=== PATIENT | female | born 1960 ===

== ENCOUNTER 2016-10-08 08:16 | Emergency (ER) | payer OTHER ==
[2016-10-08 09:03] VITALS: RESP 16; TEMP 98.7; O2SAT 99
[2016-10-08] MEDS ORDERED: Sodium Chloride 0.9% 1,000 ML IV STA (09:25)
--- NOTE | 2016-10-08 09:30 | ED PDOC ---
HPI: Abdomen Time Seen by Provider: 10/08/16 08:25 Chief Complaint (Nursing): Abdominal Pain Chief Complaint (Provider): Palpitations History Per: Patient History/Exam Limitations: no limitations Onset/Duration Of Symptoms: Hrs Current Symptoms Are (Timing): Still Present Severity: Mild Associated Symptoms: Diarrhea. denies: Fever, Vomiting, Chest Pain Additional Complaint(s): Patient is a 56 year old female, who recently started Metoprolol 25 mg twice daily, presents to the ED complaining of palpitations since this morning. Patient also complains of diarrhea. Patient states she had abdominal pain yesterday, but since then resolved. Patient had palpitations before after taking new drugs and had a prior full cardiac workup that was negative. Denies fever, vomiting, chest pain, or shortness of breath. PMD: none Past Medical History Reviewed: Historical Data, Nursing Documentation, Vital Signs Vital Signs: Last Vital Signs Temp 98.7 F 10/08/16 08:25 Pulse 97 H 10/08/16 16:12 Resp 16 10/08/16 11:44 BP 130/82 10/08/16 11:44 Pulse Ox 99 10/08/16 16:12 - Medical History PMH: Anxiety, HTN, Hypercholesterolemia - Surgical History Surgical History: No Surg Hx - Family History Family History: States: No Known Family Hx - Social History Current smoker - smoking cessation education provided: No Alcohol: None Drugs: Denies - Immunization History Hx Tetanus Toxoid Vaccination: No Hx Influenza Vaccination: No Hx Pneumococcal Vaccination: No - Home Medications Home Medications: Ambulatory Orders Medication Instructions Recorded Escitalopram 10 mg PO DAILY 09/23/16 Metoprolol 25 mg PO DAILY 09/23/16 - Allergies Allergies/Adverse Reactions: Allergies Allergy/AdvReac Type Severity Reaction Status Date / Time shrimp Allergy Severe RASH Verified 10/08/16 08:23 Review of Systems ROS Statement: Except As Marked, All Systems Reviewed And Found Negative Constitutional: Negative for: Fever Cardiovascular: Positive for: Palpitations. Negative for: Chest Pain Respiratory: Negative for: Shortness of Breath Gastrointestinal: Positive for: Diarrhea. Negative for: Vomiting, Abdominal Pain Physical Exam - Reviewed Nursing Documentation Reviewed: Yes Vital Signs Reviewed: Yes - Physical Exam Appears: Positive for: Well, Non-toxic, No Acute Distress Head Exam: Positive for: ATRAUMATIC, NORMAL INSPECTION, NORMOCEPHALIC Skin: Positive for: Normal Color, Warm, DRY Neck: Positive for: Normal, Painless ROM Cardiovascular/Chest: Positive for: Regular Rate, Rhythm. Negative for: Gallop , Murmur Respiratory: Positive for: Normal Breath Sounds. Negative for: Accessory Muscle Use, Rhonchi, Respiratory Distress Gastrointestinal/Abdominal: Positive for: Normal Exam Back: Positive for: Normal Inspection Extremity: Positive for: Normal ROM Neurologic/Psych: Positive for: Alert, Oriented - Laboratory Results Result Diagrams: 10/08/16 09:30 10/08/16 09:30 - ECG ECG Rhythm: Positive for: Sinus Rhythm. Negative for: ST/T Changes Rate: 97 O2 Sat by Pulse Oximetry: 99 (RA) Pulse Ox Interpretation: Normal Medical Decision Making Medical Decision Making: Time: 8:40 Impression; 56 y/o c/o palpitations and diarrhea Plan: EKG CMP Troponin CBC IVF 11:30 patient made aware of slightly high blood sugar and potassium levels. low K likely from diarrhea. explained to pt and pts daughter at bedside. patient refered to outpatient follow up. Patient feels better. Discussed results and plan with patient who expresses understanding. Counseling was provided regarding the diagnosis and prognosis. All questions answered and there is agreement with the plan to discharge home with instructions. Patient stable for discharge. Return if symptoms persist or worsen. Scribe Attestation: Documented by Melissa Quick acting as a scribe for Donovan Hamlin MD. Scribe Attestation: All medical record entries made by the Scribe were at my direction and personally dictated by me. I have reviewed the chart and agree that the record accurately reflects my personal performance of the history, physical exam, medical decision making, and the department course for this patient. I have also personally directed, reviewed, and agree with the discharge instructions and disposition. HISTORY: Palpitations. COMPARISON: None available. TECHNIQUE: Chest PA and lateral FINDINGS: External cardiac monitoring leads. LUNGS: No focal consolidation. Please note that chest x-ray has limited sensitivity for the detection of pulmonary masses. PLEURA: No significant pleural effusion identified. No definite pneumothorax . CARDIOVASCULAR: The cardiomediastinal silhouette appears within normal limits of size. OSSEOUS STRUCTURES: No acute osseous abnormality identified. VISUALIZED UPPER ABDOMEN: Unremarkable. OTHER FINDINGS: None. IMPRESSION: No focal consolidation, significant pleural effusion, or definite pneumothorax identified. Disposition - Clinical Impression Clinical Impression: Diarrhea, Palpitations - Patient ED Disposition Is Patient to be Admitted: No Counseled Patient/Family Regarding: Studies Performed, Diagnosis - Disposition Disposition: Routine/Home Disposition Time: 10:30 Condition: IMPROVED Additional Instructions: follow up with your primary doctor in 1-2 days. return to the ED with any worsening or concerning symptoms. Instructions: Palpitations (ED), Acute Diarrhea (ED)
[2016-10-08 09:38] LABS: BASO % 0.5 % (0.0-2.0); EOS # 0.1 K/uL (0.0-0.7); HEMATOCRIT 40.3 % (34.0-47.0); LYMPH # 1.6 K/uL (1.0-4.3); LYMPH % 22.8 % (20.0-40.0); MEAN CELL VOLUME 88.8 fl (81.0-99.0); MEAN CORPUSCULAR HEMOGLOBIN 30.2 pg (27.0-31.0); MEAN PLATELET VOLUME 10.1 fl (7.2-11.7); MONO # 0.4 K/uL (0.0-0.8); MONO % 5.5 % (0.0-10.0); NEUT # 4.9 K/uL (1.8-7.0); NEUT % 70.2 % (50.0-75.0); NRBC % 0.1 % (0.0-0.0); RED CELL DISTRIBUTION WIDTH 14.2 % (11.5-14.5)
[2016-10-08 09:54] LABS: ALB/GLOB RATIO 1.1 (1.0-2.1); ALKALINE PHOSPHATASE 83 U/L (38-126); ALT/SGPT 31 U/L (9-52); AST/SGOT 20 U/L (14-36); BILIRUBIN,TOTAL 0.4 mg/dl (0.2-1.3); BLOOD UREA NITROGEN 11 mg/dl (7-17); CALCIUM 9.3 mg/dL (8.4-10.2); CARBON DIOXIDE 22 mmol/L (22-30); CHLORIDE 106 mmol/L (98-107); GFR AFRICAN-AMERICAN > 60; GLUCOSE,RANDOM 132 mg/dL (65-105); POTASSIUM 3.4 MMOL/L (3.6-5.0); SODIUM 145 mmol/l (132-148); TOTAL PROTEIN 8.1 G/DL (6.3-8.2)
--- NOTE | 2016-10-08 11:04 | RAD ---
HISTORY: Palpitations. COMPARISON: None available. TECHNIQUE: Chest PA and lateral FINDINGS: External cardiac monitoring leads. LUNGS: No focal consolidation. Please note that chest x-ray has limited sensitivity for the detection of pulmonary masses. PLEURA: No significant pleural effusion identified. No definite pneumothorax . CARDIOVASCULAR: The cardiomediastinal silhouette appears within normal limits of size. OSSEOUS STRUCTURES: No acute osseous abnormality identified. VISUALIZED UPPER ABDOMEN: Unremarkable. OTHER FINDINGS: None. IMPRESSION: No focal consolidation, significant pleural effusion, or definite pneumothorax identified.
[2016-10-08] MEDS ORDERED: Potassium Chloride 20 mEq ER Tab PO ONE (11:32)
[2016-10-08 11:45] VITALS: BP 130/82
[2016-10-08 12:32] VITALS: PULSE 97
--- NOTE | 2016-10-08 14:56 | CARD ---
APPROVED REPORT EKG Measurement Heart [id number] <Conclusion> Normal sinus rhythm Normal ECG
== END 2016-10-08 12:07 | disposition home or self-care (01) ==
LOC: H.ER 08:16
DX: R19.7 Diarrhea, unspecified (principal); R00.2 Palpitations; I10 Essential (primary) hypertension

== ENCOUNTER 2016-10-19 19:45 | Emergency (ER) | payer OTHER ==
[2016-10-19 19:52] VITALS: RESP 16; TEMP 98.5; O2SAT 98
[2016-10-19 20:39] LABS: BASO % 0.7 % (0.0-2.0); EOS # 0.3 K/uL (0.0-0.7); EOS % 4.7 % (0.0-4.0); HEMATOCRIT 38.1 % (34.0-47.0); LYMPH # 1.9 K/uL (1.0-4.3); LYMPH % 34.8 % (20.0-40.0); MEAN CELL VOLUME 88.9 fl (81.0-99.0); MEAN CORPUSCULAR HEMOGLOBIN 29.7 pg (27.0-31.0); MEAN CORPUSCULAR HGB CONC 33.4 g/dL (33.0-37.0); MEAN PLATELET VOLUME 10.8 fl (7.2-11.7); MONO # 0.5 K/uL (0.0-0.8); MONO % 9.7 % (0.0-10.0); NEUT # 2.7 K/uL (1.8-7.0); NEUT % 50.1 % (50.0-75.0); NRBC % 0.1 % (0.0-0.0); RED CELL DISTRIBUTION WIDTH 14.5 % (11.5-14.5); WHITE BLOOD COUNT 5.5 K/uL (4.8-10.8)
[2016-10-19 20:53] LABS: ALB/GLOB RATIO 1.1 (1.0-2.1); ALKALINE PHOSPHATASE 94 U/L (38-126); ALT/SGPT 55 U/L (9-52); AST/SGOT 37 U/L (14-36); BILIRUBIN,TOTAL 0.5 mg/dl (0.2-1.3); BLOOD UREA NITROGEN 13 mg/dl (7-17); CALCIUM 9.5 mg/dL (8.4-10.2); CARBON DIOXIDE 23 mmol/L (22-30); CHLORIDE 107 mmol/L (98-107); GFR AFRICAN-AMERICAN > 60; GLUCOSE,RANDOM 106 mg/dL (65-105); POTASSIUM 3.5 MMOL/L (3.6-5.0); SODIUM 141 mmol/l (132-148); TOTAL PROTEIN 7.7 G/DL (6.3-8.2)
--- NOTE | 2016-10-19 20:53 | ED PDOC ---
HPI: CCC, URI, Sore Throat Time Seen by Provider: 10/19/16 20:00 Chief Complaint (Nursing): Cough, Cold, Congestion Chief Complaint (Provider): Cough History Per: Patient History/Exam Limitations: no limitations Have you had recent travel within the past 21 days to any of the following countries: [place], [place], [place] or [place]?: No Onset/Duration Of Symptoms: Days (4 days ago) Current Symptoms Are (Timing): Still Present Location Of Pain: Other (left-sided chest pain when coughing, radiating to her back) Associated Symptoms: Cough, Sputum (yellow, rarely blood-tinged). denies: Fever , Chills, Sore Throat, Sinus Drainage (rhinorrhea), Other (leg swelling) Severity: Moderate Additional Complaint(s): Radha Blake is a 56 year old female, with a past medical history of hypertension, who presents to the emergency department for the evaluation of a productive cough that produces yellow, rarely blood-tinged sputum, that the patient has been experiencing for the past 4 days. Patient reports taking Nyquil and Zyrtec; however, they provided no relief, prompting her visit to the ED. Associated left-sided chest pain that radiates to her back is present when she coughs. Denies a fever, chills, leg swelling, rhinorrhea, or a sore throat. PMD: [facility] Past Medical History Reviewed: Historical Data, Nursing Documentation, Vital Signs Vital Signs: Last Vital Signs Temp 98.5 F 10/19/16 19:51 Pulse 81 10/19/16 23:02 Resp 16 10/19/16 19:51 BP 134/74 10/19/16 21:00 Pulse Ox 98 10/19/16 21:12 - Medical History PMH: Anxiety, HTN, Hypercholesterolemia - Surgical History Surgical History: - Family History Family History: States: Hypertension - Immunization History Hx Tetanus Toxoid Vaccination: No Hx Influenza Vaccination: No Hx Pneumococcal Vaccination: No - Home Medications Home Medications: Ambulatory Orders Medication Instructions Recorded Escitalopram 10 mg PO DAILY 09/23/16 Metoprolol 25 mg PO DAILY 09/23/16 Azithromycin 1 tab PO DAILY #6 tab 10/19/16 Naproxen [Naprosyn] 1 tab PO BID PRN #30 tab 10/19/16 Promethazine HCl/Codeine 10 ml PO Q8 #120 ml 10/19/16 [Prometh-Codein 6.25-10 mg/5 ml] - Allergies Allergies/Adverse Reactions: Allergies Allergy/AdvReac Type Severity Reaction Status Date / Time shrimp Allergy Severe RASH Verified 10/08/16 08:23 octopus Allergy RASH Verified 10/19/16 19:49 Review of Systems ROS Statement: Except As Marked, All Systems Reviewed And Found Negative Constitutional: Negative for: Fever, Chills ENT: Positive for: Throat Pain. Negative for: Nose Discharge (rhinorrhea) Cardiovascular: Positive for: Chest Pain (when coughing). Negative for: Edema ( leg swelling) Respiratory: Positive for: Cough, Sputum (yellow, rarely blood-tinged) Musculoskeletal: Positive for: Back Pain (radiating from her chest when coughing ) Physical Exam - Reviewed Nursing Documentation Reviewed: Yes Vital Signs Reviewed: Yes - Physical Exam Appears: Positive for: Well (tired), Non-toxic, No Acute Distress Head Exam: Positive for: ATRAUMATIC, NORMAL INSPECTION, NORMOCEPHALIC Skin: Positive for: Normal Color, Warm, Dry Eye Exam: Positive for: EOMI, Normal appearance, PERRL ENT: Positive for: Normal ENT Inspection. Negative for: Pharyngeal Erythema, Tonsillar Exudate Neck: Positive for: Normal, Painless ROM, Supple Cardiovascular/Chest: Positive for: Regular Rate, Rhythm. Negative for: Murmur Respiratory: Positive for: Rales (left lower lung). Negative for: Normal Breath Sounds, Rhonchi, Wheezing, Respiratory Distress Gastrointestinal/Abdominal: Positive for: Normal Exam, Soft. Negative for: Tenderness Back: Positive for: Normal Inspection. Negative for: Decreased ROM Extremity: Positive for: Normal ROM. Negative for: Deformity Lymphatic: Negative for: Adenopathy Neurologic/Psych: Positive for: Alert, Oriented. Negative for: Motor/Sensory Deficits - Laboratory Results Result Diagrams: 10/19/16 20:35 10/19/16 20:35 - ECG ECG Rhythm: Positive for: Normal QRS, Normal ST Segment, Sinus Rhythm Rate: 94 O2 Sat by Pulse Oximetry: 98 (RA) Pulse Ox Interpretation: Normal Medical Decision Making Medical Decision Makin:00 Initial Impression: cough Differential Diagnoses include, but are not limited to, bronchitis, pneumonia, and congestive heart failure. Initial Plan: * Chest X-Ray * EKG * CBC * CMP * BNP * Troponin I * Influenza A/B * Blood Culture * Reevaluation 20:15 EKG read at a rate of 94. Normal Sinus Rhythm, Normal QRS, Normal ST Segment. 2200 Labs unremarkable. CXR unremarkable. Scribe Attestation: Documented by Amanuel Villagomez, acting as a scribe for Denice Kothari MD. Provider Scribe Attestation: All medical record entries made by the Scribe were at my direction and personally dictated by me. I have reviewed the chart and agree that the record accurately reflects my personal performance of the history, physical exam, medical decision making, and the department course for this patient. I have also personally directed, reviewed, and agree with the discharge instructions and disposition. Disposition - Clinical Impression Clinical Impression: Bronchitis - Disposition Referrals: [facility] [Outside] - 10/21/16 Disposition: Routine/Home Disposition Time: 22:00 Condition: STABLE Prescriptions: Azithromycin 1 tab PO DAILY #6 tab Naproxen [Naprosyn] 1 tab PO BID PRN #30 tab PRN Reason: Pain Promethazine HCl/Codeine [Prometh-Codein 6.25-10 mg/5 ml] 10 ml PO Q8 #120 ml Instructions: Acute Bronchitis (ED) Print Language: MALAY
[2016-10-19 21:01] VITALS: BP 134/74
--- NOTE | 2016-10-20 10:02 | CARD ---
APPROVED REPORT EKG Measurement Heart [id number] <Conclusion> Normal sinus rhythm Normal ECG
--- NOTE | 2016-10-20 10:20 | RAD ---
HISTORY: cough chest pain COMPARISON: 10/08/2016 TECHNIQUE: Chest PA and lateral FINDINGS: LUNGS: No active pulmonary disease. PLEURA: No significant pleural effusion identified. No pneumothorax apparent. CARDIOVASCULAR: Normal. OSSEOUS STRUCTURES: No significant abnormalities. VISUALIZED UPPER ABDOMEN: Normal. OTHER FINDINGS: None. IMPRESSION: No active disease.
[2016-10-20 17:20] VITALS: PULSE 94
== END 2016-10-19 23:02 | disposition home or self-care (01) ==
LOC: H.ER 19:45
DX: J40 Bronchitis, not specified as acute or chronic (principal)

== ENCOUNTER 2017-05-07 12:46 | Inpatient (IN) | payer SELFPAY ==
[2017-05-07] MEDS ORDERED: Alum-Mag Hydrox-Simethicone Susp (30 mL) PO ONE (13:49)
[2017-05-07] MEDS ORDERED: Sodium Chloride 0.9% 1,000 ML IV STA (13:49)
[2017-05-07] MEDS ORDERED: Alum-Mag Hydrox-Simethicone Susp (30 mL) ONE (13:58)
--- NOTE | 2017-05-07 14:10 | ED PDOC ---
HPI: General Adult History Per: Patient <Todd Cope - Last Filed: 05/07/17 19:39> <Antonio Daniels III - Last Filed: 05/08/17 17:37> Time Seen by Provider: 05/07/17 13:00 Chief Complaint (Nursing): Abdominal Pain Additional Complaint(s): Pt. states this morning she developed epigastric abdominal pain shortly after eating breakfast and taking her Buspirone. Pt. reports that earlier this year she was diagnosed as having gallstones. Reports pain is usually resolved after eating. Denies N/V/D, radiation of pain, chest pain, back pain, hematemesis. ( Todd Cope) Past Medical History - Medical History PMH: Anxiety, HTN, Hypercholesterolemia - Surgical History Surgical History: - Family History Family History: States: Hypertension - Immunization History Hx Tetanus Toxoid Vaccination: No Hx Influenza Vaccination: No Hx Pneumococcal Vaccination: No <Todd Cope - Last Filed: 05/07/17 19:39> <Antonio Daniels III - Last Filed: 05/08/17 17:37> Vital Signs: Last Vital Signs Temp 98.3 F 05/08/17 16:22 Pulse 64 05/08/17 16:22 Resp 14 05/08/17 16:22 BP 121/71 05/08/17 16:22 Pulse Ox 97 05/08/17 16:22 - Home Medications Home Medications: Ambulatory Orders Medication Instructions Recorded Lactobacillus Combination No.8 1 cap PO BID 05/07/17 [Adult Probiotic] busPIRone [Buspar] 5 mg PO BID 05/07/17 - Allergies Allergies/Adverse Reactions: Allergies Allergy/AdvReac Type Severity Reaction Status Date / Time shrimp Allergy Severe RASH Verified 05/07/17 12:55 octopus Allergy RASH Verified 05/07/17 12:55 Review of Systems ROS Statement: Except As Marked, All Systems Reviewed And Found Negative Gastrointestinal: Positive for: Abdominal Pain <Todd Cope - Last Filed: 05/07/17 19:39> Physical Exam - Reviewed Nursing Documentation Reviewed: Yes Vital Signs Reviewed: Yes - Physical Exam Appears: Positive for: Well, Non-toxic, No Acute Distress Head Exam: Positive for: ATRAUMATIC, NORMAL INSPECTION, NORMOCEPHALIC Skin: Positive for: Normal Color, Warm. Negative for: Rash Eye Exam: Positive for: EOMI, Normal appearance, PERRL ENT: Positive for: Normal ENT Inspection Neck: Positive for: Normal, Painless ROM Cardiovascular/Chest: Positive for: Regular Rate, Rhythm Respiratory: Positive for: CNT, Normal Breath Sounds Gastrointestinal/Abdominal: Positive for: Normal Exam, Bowel Sounds, Soft, Other (negative Rubi's sign). Negative for: Tenderness Back: Positive for: Normal Inspection Extremity: Positive for: Normal ROM Neurologic/Psych: Positive for: Alert, Oriented <Todd Cope - Last Filed: 05/07/17 19:39> - Laboratory Results Result Diagrams: 05/07/17 14:13 05/07/17 14:13 - ECG O2 Sat by Pulse Oximetry: 100 <Todd Cope - Last Filed: 05/07/17 19:39> - Laboratory Results Result Diagrams: 05/08/17 04:30 05/08/17 04:30 <Antonio Daniels III - Last Filed: 05/08/17 17:37> - Progress ED Course And Treament: Labs ordered. Pepcid 20mg IV, zofran 4mg IV, maalox 30ml PO, IV NS bolus x 1 ordered. 1530 Case d/w Dr. Tello, rn medical surgical, and will see patient in ED. Lipase is elevated. Call placed to [facility] water pollution specialist. Abd US: precholecystic edema and fluid present; no gallstones. Zosyn IV given. Pt. reports pain has resolved. LR hydration given. 1537 Dr. Daniels discussed case with Dr. Alexander GI, who recommends MRCP. 1727 MRCP: No evidence of pancreatitis. No evidence of biliary obstruction. Diffuse thickening of the gallbladder wall with trace pericholecystic fluid and trace ascites. Findings raise suspicion of cholecystitis though they are nonspecific. Case d/w Dr. Alexander and recommends IV hydration. Case d/w Araceli, rn medical surgical, who evaluate pt. in ED. Call placed to Dr. Fabian. As per Araceli she will contact Dr. Fabian herself. (Todd Cope) Medical Decision Making <Todd Cope - Last Filed: 05/07/17 19:39> <Antonio Daniels III - Last Filed: 05/08/17 17:37> Medical Decision Making: patient seen and examined. Agree w PA findings GI and surgery water pollution specialist aware. IVF and antibiotics were initiated. (Antonio Daniels III) Disposition - Patient ED Disposition Is Patient to be Admitted: No - Disposition Disposition Time: 15:37 <Todd Cope - Last Filed: 05/07/17 19:39> - Patient ED Disposition Is Patient to be Admitted: Yes <Antonio Daniels III - Last Filed: 05/08/17 17:37> - Clinical Impression Clinical Impression: Gallstone pancreatitis - Disposition Condition: STABLE
[2017-05-07 14:29] LABS: BASO % 0.1 % (0.0-2.0); EOS % 0.3 % (0.0-4.0); LYMPH % 13.3 % (20.0-40.0); MEAN CELL VOLUME 90.3 fl (81.0-99.0); MEAN CORPUSCULAR HEMOGLOBIN 29.7 pg (27.0-31.0); MEAN CORPUSCULAR HGB CONC 32.9 g/dL (33.0-37.0); MEAN PLATELET VOLUME 11.7 fl (7.2-11.7); MONO # 0.8 K/uL (0.0-0.8); MONO % 4.9 % (0.0-10.0); NEUT # 12.5 K/uL (1.8-7.0); NEUT % 81.4 % (50.0-75.0); RED CELL DISTRIBUTION WIDTH 13.6 % (11.5-14.5); WHITE BLOOD COUNT 15.3 K/uL (4.8-10.8)
[2017-05-07 14:32] LABS: RBC URINE 1 /hpf (0-3); URINE BACTERIA RARE (<OCC); URINE BILIRUBIN NEGATIVE (NEGATIVE); URINE BLOOD NEGATIVE (NEGATIVE); URINE COLOR YELLOW (YELLOW); URINE GLUCOSE (UA) NEG (Normal); URINE KETONE NEGATIVE (NEGATIVE); URINE LEUKOCYTE ESTERASE NEG Leu/uL (Negative); URINE PROTEIN NEGATIVE (NEGATIVE); URINE UROBILINOGEN 0.2-1.0 mg/dL (0.2-1.0); WBC URINE 1 /hpf (0-5)
[2017-05-07 14:55] LABS: ALB/GLOB RATIO 1.3 (1.0-2.1); ALKALINE PHOSPHATASE 155 U/L (38-126); ALT/SGPT 167 U/L (9-52); AST/SGOT 264 U/L (14-36); BILIRUBIN,TOTAL 0.8 mg/dl (0.2-1.3); BLOOD UREA NITROGEN 16 mg/dl (7-17); CALCIUM 9.2 mg/dL (8.4-10.2); CARBON DIOXIDE 24 mmol/L (22-30); CHLORIDE 104 mmol/L (98-107); GFR AFRICAN-AMERICAN > 60; GLUCOSE,RANDOM 111 mg/dL (65-105); POTASSIUM 3.3 MMOL/L (3.6-5.0); SODIUM 144 mmol/l (132-148); TOTAL PROTEIN 8.6 G/DL (6.3-8.2)
[2017-05-07] MEDS ORDERED: Piperacillin/Tazobact 3.375 GM in Sodium Chloride 0.9% 100 ML IVPB STA (15:26)
[2017-05-07 15:28] LABS: LIPASE 36249 U/L (23-300)
--- NOTE | 2017-05-07 15:33 | US ---
HISTORY: epigastric abdominal pain COMPARISON: 02/11/2017 TECHNIQUE: Sonographic evaluation of the abdomen. FINDINGS: LIVER: Measures 15.3 cm. Normal echogenicity of the liver parenchyma. No mass. No intrahepatic bile duct dilatation. GALLBLADDER: There is interval change in the gallbladder. Gallstones present. Gallbladder wall thickening up to 6.2 mm and pericholecystic pericholecystic fluid. Findings concerning for interval acute cholecystitis. No sonographic Rubi sign reported COMMON BILE DUCT: Measures 5.2 mm. No stones. No dilatation. PANCREAS: Unremarkable as visualized. No mass. No ductal dilatation. RIGHT KIDNEY: Measures 7.7 x 4.0 by 5.5cm. Normal echogenicity. No calculus, solid mass or hydronephrosis. . A prior cyst 1.8 x 0.9 cm is present a prior cyst was previously reported. There is echogenic material bordering it trace calcification within it are bordering it is possible. Overall size similar LEFT KIDNEY: Measures 10.6 x 6.2 x 5.7cm. Normal echogenicity. No calculus, mass, or hydronephrosis. SPLEEN: Normal in size and contour. No mass. AORTA: No aneurysmal dilatation. IVC: Unremarkable. OTHER FINDINGS: None. IMPRESSION: Interval change in the appearance of the gallbladder. Gallstones are not present. Gallbladder wall thickening and edema the pericholecystic fluid present. Although no positive sonographic Rubi sign is reported. The sonographic findings are concerning for interval acute/ subacute cholecystitis. Findings were called in to the ER on 05/07/2017 at 3:30 p.m. and directly given to Dr Cabello
[2017-05-07] MEDS ORDERED: Lactated Ringer's 1,000 ML IV SCH ×4 (15:45→18:30)
[2017-05-07] MEDS ORDERED: Gadodiamide 287 MG/ML VIAL (15ML) IV ONE (15:53)
[2017-05-07] MEDS ORDERED: Sodium Chloride 0.9% 50 ML IV ONE (15:53)
[2017-05-07 16:16] LABS: VENOUS BLOOD GAS BASE EXCESS -0.6 mmol/L (0.0-2.0); VENOUS BLOOD GAS PCO2 43 mmHg (40-60); VENOUS BLOOD PH 7.37 (7.32-7.43)
--- NOTE | 2017-05-07 16:24 | CP.PCM.HP ---
History of Present Illness - History of Present Illness History of Present Illness: History and Physical Family Medicine Dr. Smith 56 y.o female with PMH of acid reflux, HTN, hypercholesterolemia, Generalized Anxiety Disorder, knee OA, and gallstones seen on 02/11/17 seen in the ED for epigastric abdominal pain. She reports the pain happened this morning after eating breakfast. She rates her pain 10/10 and describes the pain as a pressure , throbbing pain. She reports the pain stays localized to the epigastric region. Denies radiation. ROS: denies nausea/vomitting/shortness of breath/chest pain/chills/fever/ dysuria PMH: acid reflux, HTN, hypercholesterolemia, Generalized Anxiety Disorder, knee OA, gallstones ALL: shrimp, octopus- rash MEDS: Buspirone FH: mother- COPD, father- HTN, CAD; denies history of cancer SH: denies smoking, drinks socially, denies elicited drug use PSH: 1- LMP: 4 years ago PMD [facility] Dr. Crain ED Course: EKG: normal sinus rhythm, normal EKG vitals: 96.7F, UT 60, BP 130/51, RR 16, O2 Stat 100 WBC: 15.3 AST: 264, ALT: 167, Alkaline Phosphatase: 155 Lipase: 84369 Given stat dose of Zosyn Given Famotidine, Simethicone Given LR 1000 mls @ 1000 mls/hr IV .q1h say x 2 bolus Abdominal ultrasound ordered MRCP pending Abdominal ultrasound results: LIVER: Measures 15.3 cm. Normal echogenicity of the liver parenchyma. No mass. No intrahepatic bile duct dilatation. GALLBLADDER: There is interval change in the gallbladder. Gallstones present. Gallbladder wall thickening up to 6.2 mm and pericholecystic pericholecystic fluid. Findings concerning for interval acute cholecystitis. No sonographic Rubi sign reported COMMON BILE DUCT: Measures 5.2 mm. No stones. No dilatation. PANCREAS: Unremarkable as visualized. No mass. No ductal dilatation. RIGHT KIDNEY: Measures 7.7 x 4.0 by 5.5cm. Normal echogenicity. No calculus, solid mass or hydronephrosis. . A prior cyst 1.8 x 0.9 cm is present a prior cyst was previously reported. There is echogenic material bordering it trace calcification within it are bordering it is possible. Overall size similar LEFT KIDNEY: Measures 10.6 x 6.2 x 5.7cm. Normal echogenicity. No calculus, mass , or hydronephrosis. SPLEEN: Normal in size and contour. No mass. AORTA: No aneurysmal dilatation. IVC: Unremarkable. OTHER FINDINGS: None. IMPRESSION: Interval change in the appearance of the gallbladder. Gallstones are not present. Gallbladder wall thickening and edema the pericholecystic fluid present. Although no positive sonographic Rubi sign is reported. The sonographic findings are concerning for interval acute/ subacute cholecystitis. Present on Admission - Present on Admission Any Indicators Present on Admission: No History of DVT/PE: No History of Uncontrolled Diabetes: No Urinary Catheter: No Decubitus Ulcer Present: No Review of Systems - Constitutional Constitutional: absent: Fatigue, Lethargy - EENT Eyes: absent: Change in Vision, Other Visual Disturbances - Cardiovascular Cardiovascular: absent: Chest Pain, Dyspnea on Exertion - Respiratory Respiratory: absent: Cough, Dyspnea - Gastrointestinal Gastrointestinal: As Per HPI, Abdominal Pain. absent: Diarrhea, Hematemesis, Hematochezia, Melena, Vomiting - Genitourinary Genitourinary: absent: Dysuria, Hematuria, Urinary Frequency - Neurological Neurological: absent: Abnormal Speech, Behavioral Changes, Dizziness Past Patient History - Past Social History Smoking Status: Never Smoked - CARDIAC Hx Hypercholesterolemia: Yes Hx Hypertension: Yes - PSYCHIATRIC Hx Anxiety: Yes - SURGICAL HISTORY Hx Surgeries: Yes Hx Section: Yes - ANESTHESIA Hx Anesthesia: Yes Meds Allergies/Adverse Reactions: Allergies Allergy/AdvReac Type Severity Reaction Status Date / Time shrimp Allergy Severe RASH Verified 05/07/17 12:55 octopus Allergy RASH Verified 05/07/17 12:55 Physical Exam - Constitutional Appears: Well, Non-toxic, No Acute Distress - Head Exam Head Exam: ATRAUMATIC - Eye Exam Eye Exam: Normal appearance. absent: Scleral icterus - ENT Exam ENT Exam: Mucous Membranes Dry Additional comments: Mild - Neck Exam Neck exam: Positive for: Full Rom - Respiratory Exam Respiratory Exam: Clear to Auscultation Bilateral, NORMAL BREATHING PATTERN. absent: Decreased Breath Sounds, Rales, Rhonchi, Wheezes, Respiratory Distress, Stridor - Cardiovascular Exam Cardiovascular Exam: REGULAR RHYTHM, RRR, +S1, +S2 - GI/Abdominal Exam GI & Abdominal Exam: Normal Bowel Sounds, Soft, Tenderness. absent: Pulsatile Mass, Rebound Additional comments: Mild tenderness upon palpation to the epigastric region - Extremities Exam Extremities exam: Positive for: normal capillary refill, normal inspection, pedal pulses present. Negative for: calf tenderness, pedal edema - Neurological Exam Neurological exam: Alert, Oriented x3 - Psychiatric Exam Psychiatric exam: Anxious, Normal Affect Results - Vital Signs Recent Vital Signs: Last Vital Signs Temp 96.7 F L 05/07/17 12:55 Pulse 60 05/07/17 12:55 Resp 16 05/07/17 12:55 BP 130/51 L 05/07/17 12:55 Pulse Ox 100 05/07/17 15:38 - Labs Result Diagrams: 05/07/17 14:13 05/07/17 14:13 Labs: Laboratory Results - last 24 hr 05/07/17 05/07/17 05/07/17 14:13 14:13 14:13 WBC 15.3 H D RBC 4.32 Hgb 12.8 Hct 39.0 MCV 90.3 MCH 29.7 MCHC 32.9 L RDW 13.6 Plt Count 191 MPV 11.7 Neut % (Auto) 81.4 H Lymph % (Auto) 13.[address] [place] % (Auto) 4.9 Eos % (Auto) 0.3 Baso % (Auto) 0.1 Neut # 12.5 H Lymph # 2.0 [place] # 0.8 Eos # 0.0 Baso # 0.0 pO2 VBG pH VBG pCO2 VBG HCO3 VBG Total CO2 VBG O2 Sat (Calc) VBG Base Excess VBG Potassium Glucose Lactate FiO2 Sodium 144 Potassium 3.3 L Chloride 104 Carbon Dioxide 24 Anion Gap 19 BUN 16 Creatinine 0.5 L Est GFR ( Amer) > 60 Est GFR (Non-Af Amer) > 60 Random Glucose 111 H Calcium 9.2 Total Bilirubin 0.8 AST 264 H ALT 167 H D Alkaline Phosphatase 155 H Total Protein 8.6 H Albumin 4.8 Globulin 3.8 Albumin/Globulin Ratio 1.3 Lipase 89457 H Venous Blood Potassium Urine Color Yellow Urine Clarity Cloudy Urine pH 6.0 Ur Specific [place] 1.008 Urine Protein Negative Urine Glucose (UA) Neg Urine Ketones Negative Urine Blood Negative Urine Nitrate Negative Urine Bilirubin Negative Urine Urobilinogen 0.2-1.0 Ur Leukocyte Esterase Neg Urine RBC (Auto) 1 Urine Microscopic WBC 1 Ur Squamous Epith Cells < 1 Urine Bacteria Rare 05/07/17 16:10 WBC RBC Hgb Hct MCV MCH MCHC RDW Plt Count MPV Neut % (Auto) Lymph % (Auto) [place] % (Auto) Eos % (Auto) Baso % (Auto) Neut # Lymph # [place] # Eos # Baso # pO2 24 L VBG pH 7.37 VBG pCO2 43 VBG HCO3 22.9 VBG Total CO2 26.2 VBG O2 Sat (Calc) 45.6 VBG Base Excess -0.6 L VBG Potassium 3.3 L Glucose 128 H Lactate 1.1 FiO2 21.0 Sodium 139.0 Potassium Chloride 107.0 Carbon Dioxide Anion Gap BUN Creatinine Est GFR ( Amer) Est GFR (Non-Af Amer) Random Glucose Calcium Total Bilirubin AST ALT Alkaline Phosphatase Total Protein Albumin Globulin Albumin/Globulin Ratio Lipase Venous Blood Potassium 3.3 L Urine Color Urine Clarity Urine pH Ur Specific [place] Urine Protein Urine Glucose (UA) Urine Ketones Urine Blood Urine Nitrate Urine Bilirubin Urine Urobilinogen Ur Leukocyte Esterase Urine RBC (Auto) Urine Microscopic WBC Ur Squamous Epith Cells Urine Bacteria Assessment & Plan - Assessment and Plan (Free Text) Assessment: 56 y.o female with PMH of acid reflux, HTN, hypercholesterolemia, supraventricular tachycardia, Generalized Anxiety Disorder, knee OA, gallstones admitted for Acute pancreatitis of unclear etiology most likely secondary to gallstones Plan: 1) Acute pancreatitis of unclear etiology most likely gallstones - abdominal U/S (02/11/17) showed cholelitihiasis without cholecystitis - WBC: 15.3 - AST: 264, ALT: 167, Alkaline Phosphatase: 155 - Elevated Lipase: 82640 - BISAP score: 0 - NPO Diet - c/w LR 1000 mls @ 200 mls/hr IV .q5h say - Abdominal ultrasound Results (05/07/17): Impression: "Interval change in the appearance of the gallbladder. Gallstones are not present. Gallbladder wall thickening and edema the pericholecystic fluid present. Although no positive sonographic Rubi sign is reported. The sonographic findings are concerning for interval acute/ subacute cholecystitis" - f/u MRCP Results - GI consulted- recommendations appreciated - f/u alcohol serum - Dilaudid .5mg q4 IV PRN for moderate-severe pain - Zofran PRN 2) Elevated WBC -Zosyn stat given in ED -Repeat CBC in AM -Pending blood culture results 3) HTN -diet controlled 4) Hypercholesterolemia -f/u lipid panel 5) DVT prophylaxis -SCDs 6) Diet -NPO Diet
--- NOTE | 2017-05-07 17:29 | MRI ---
PROCEDURE: Magnetic Resonance Cholangiopancreatography HISTORY: COMPARISON: None available. TECHNIQUE: Multiplanar, multisequence MR images of the abdomen were obtained, including heavily T2 weighted MRCP images of the biliary system. Rotating maximum intensity projection images of the biliary system were generated. FINDINGS: MRCP: The common bile duct is of a normal caliber. No evidence of choledocholithiasis. No intrahepatic biliary ductal dilatation. LIVER: Normal size, contour and signal intensity. No mass. No biliary ductal dilatation. GALLBLADDER: The gallbladder wall is diffusely thickened. There is trace pericholecystic fluid as well as a small amount ascites about the lateral aspect of the liver and in Morison's pouch. The findings are suspicious for cholecystitis though they are nonspecific. SPLEEN: Unremarkable. PANCREAS: No mass, pancreatic ductal dilatation or peripancreatic fluid collection. ADRENALS: Unremarkable. KIDNEYS: Right lower pole renal cortical cyst, 1.6 cm diameter. No hydronephrosis. AORTA: No aneurysm. ASCITES: Trace OTHER FINDINGS: None. IMPRESSION: No evidence of pancreatitis. No evidence of biliary obstruction. Diffuse thickening of the gallbladder wall with trace pericholecystic fluid and trace ascites. Findings raise suspicion of cholecystitis though they are nonspecific. Correlated with abdominal ultrasound examination of the same date, gallstones and mural thickening and pericholecystic fluid were seen. . .
[2017-05-07 18:50] LABS: ALCOHOL SERUM < 10 mg/dl (0-10); CHOLESTEROL 202 mg/dL (0-199)
[2017-05-07] MEDS: Lactated Ringer's 1,000 ML IV SCH ×2 (19:55→23:00)
--- NOTE | 2017-05-07 23:02 | CP.PCM.CON ---
History of Present Illness - History of Present Illness History of Present Illness: GENERAL SURGERY CONSULT NOTE FOR DR. VENEGAS 56yoF with PMHx of cholelithiasis, anxiety presents to the ED with epigastric abdominal pain. The pain began this morning after breakfast. Patient describes the pain as "pressure". She tried drinking tea which didn't help. She had some nausea this morning and vomited a small amount. She denies diarrhea, last BM was this morning. Patient states the pain has been on and off for about 3 months. She notices the pain more when she takes her Buspirone pill on an empty stomach. The pain is not worse after eating. Pt states she eats very healthy after she was diagnosed with HTN and was able to control her BP with diet only. She does not eat greasy or fatty foods. She had an US on 02/11/17 which showed cholelithiasis without signs of cholecystitis PMHx: acid reflux, HTN (formerly on meds but changed diet and now doesn't need BP meds anymore), prediabetic, Generalized Anxiety Disorder, gallstones PSHx: C-sectionx1 ALL: shrimp, octopus- rash MEDS: Buspirone Social hx: denies smoking, drank socially - hasn't had etoh in 2 years, denies elicit drug use LMP: 4 years ago Review of Systems - Review of Systems All systems: reviewed and no additional remarkable complaints except (as per hpi ) Past Patient History - Past Social History Smoking Status: Never Smoked - CARDIAC Hx Cardiac Disorders: Yes - PSYCHIATRIC Hx Anxiety: Yes - SURGICAL HISTORY Hx Surgeries: Yes Hx Section: Yes - ANESTHESIA Hx Anesthesia: Yes Meds Allergies/Adverse Reactions: Allergies Allergy/AdvReac Type Severity Reaction Status Date / Time shrimp Allergy Severe RASH Verified 05/07/17 12:55 octopus Allergy RASH Verified 05/07/17 12:55 - Medications Medications: Current Medications Hydromorphone HCl (Dilaudid) 1 mg IVP Q6 PRN PRN Reason: Pain, severe (8-10) Hydromorphone HCl (Dilaudid) 0.5 mg IVP Q4 PRN PRN Reason: Pain, moderate (4-7) Stop: 05/09/17 18:50 Lactated Ringer's (Lactated Ringer's) 1,000 mls @ 1,000 mls/hr IV .Q1H [facility] Last Admin: 05/07/17 18:32 Dose: 1,000 mls/hr Lactated Ringer's (Lactated Ringer's) 1,000 mls @ 250 mls/hr IV .Q4H [facility] Last Admin: 05/07/17 19:55 Dose: 250 mls/hr Ondansetron HCl (Zofran Inj) 4 mg IVP Q4 PRN PRN Reason: Nausea/Vomiting Physical Exam - Constitutional Appears: Non-toxic, No Acute Distress - Head Exam Head Exam: ATRAUMATIC, NORMAL INSPECTION - Eye Exam Eye Exam: EOMI, Normal appearance - Respiratory Exam Respiratory Exam: NORMAL BREATHING PATTERN. absent: Respiratory Distress - Cardiovascular Exam Cardiovascular Exam: +S1, +S2 - GI/Abdominal Exam GI & Abdominal Exam: Soft, Tenderness (mild tender epigastric). absent: Distended, Firm, Guarding, Rebound, Rigid Additional comments: well healed C section scar - Neurological Exam Neurological exam: Alert, CN II-XII Intact, Oriented x3 - Psychiatric Exam Psychiatric exam: Normal Affect, Normal Mood - Skin Skin Exam: Dry, Normal Color, Warm Results - Vital Signs Recent Vital Signs: Last Vital Signs Temp 98.1 F 05/07/17 22:16 Pulse 78 05/07/17 22:16 Resp 20 05/07/17 22:16 BP 129/70 05/07/17 22:16 Pulse Ox 100 05/07/17 22:16 - Labs Result Diagrams: 05/07/17 14:13 05/07/17 14:13 Labs: Laboratory Results - last 24 hr 05/07/17 05/07/17 05/07/17 14:13 14:13 14:13 WBC 15.3 H D RBC 4.32 Hgb 12.8 Hct 39.0 MCV 90.3 MCH 29.7 MCHC 32.9 L RDW 13.6 Plt Count 191 MPV 11.7 Neut % (Auto) 81.4 H Lymph % (Auto) 13.3 L [place] % (Auto) 4.9 Eos % (Auto) 0.3 Baso % (Auto) 0.1 Neut # 12.5 H Lymph # 2.0 [place] # 0.8 Eos # 0.0 Baso # 0.0 pO2 VBG pH VBG pCO2 VBG HCO3 VBG Total CO2 VBG O2 Sat (Calc) VBG Base Excess VBG Potassium Glucose Lactate FiO2 Sodium 144 Potassium 3.3 L Chloride 104 Carbon Dioxide 24 Anion Gap 19 BUN 16 Creatinine 0.5 L Est GFR ( Amer) > 60 Est GFR (Non-Af Amer) > 60 Random Glucose 111 H Calcium 9.2 Total Bilirubin 0.8 AST 264 H ALT 167 H D Alkaline Phosphatase 155 H Total Protein 8.6 H Albumin 4.8 Globulin 3.8 Albumin/Globulin Ratio 1.3 Triglycerides Cholesterol LDL Cholesterol Direct HDL Cholesterol Lipase 34776 H Venous Blood Potassium Urine Color Yellow Urine Clarity Cloudy Urine pH 6.0 Ur Specific [place] 1.008 Urine Protein Negative Urine Glucose (UA) Neg Urine Ketones Negative Urine Blood Negative Urine Nitrate Negative Urine Bilirubin Negative Urine Urobilinogen 0.2-1.0 Ur Leukocyte Esterase Neg Urine RBC (Auto) 1 Urine Microscopic WBC 1 Ur Squamous Epith Cells < 1 Urine Bacteria Rare Alcohol, Quantitative 05/07/17 05/07/17 16:10 18:41 WBC RBC Hgb Hct MCV MCH MCHC RDW Plt Count MPV Neut % (Auto) Lymph % (Auto) [place] % (Auto) Eos % (Auto) Baso % (Auto) Neut # Lymph # [place] # Eos # Baso # pO2 24 L VBG pH 7.37 VBG pCO2 43 VBG HCO3 22.9 VBG Total CO2 26.2 VBG O2 Sat (Calc) 45.6 VBG Base Excess -0.6 L VBG Potassium 3.3 L Glucose 128 H Lactate 1.1 FiO2 21.0 Sodium 139.0 Potassium Chloride 107.0 Carbon Dioxide Anion Gap BUN Creatinine Est GFR ( Amer) Est GFR (Non-Af Amer) Random Glucose Calcium Total Bilirubin AST ALT Alkaline Phosphatase Total Protein Albumin Globulin Albumin/Globulin Ratio Triglycerides 99 D Cholesterol 202 H LDL Cholesterol Direct 116 HDL Cholesterol 52 Lipase Venous Blood Potassium 3.3 L Urine Color Urine Clarity Urine pH Ur Specific [place] Urine Protein Urine Glucose (UA) Urine Ketones Urine Blood Urine Nitrate Urine Bilirubin Urine Urobilinogen Ur Leukocyte Esterase Urine RBC (Auto) Urine Microscopic WBC Ur Squamous Epith Cells Urine Bacteria Alcohol, Quantitative < 10 Assessment & Plan - Assessment and Plan (Free Text) Assessment: 56yoF with PMHx of cholelithiasis, anxiety presents with epigastric abdominal pain and was found to have gallstone pancreatitis - Afebrile, VSS - Leukocytosis WBC 15.3 - Bili WNL - Elevated LFTs and Alk phos - Lipase 36,249 - US: gallstones, gallbladder wall thickening up to 6.2mm, pericholecystic fluid suggesting acute cholecystitis, CBD 5.2mm - MRCP: gallbladder wall diffusely thickened, trace pericholecystic fluid, small ascites, CBD normal caliber without CBD stone; no evidence of pancreatitis - NPO, IV fluids - Zofran and pain control PRN - Possible cholecystectomy this admission once pancreatitis cools down - Will discuss plan with Dr. Rui Siegel PGY-3
[2017-05-08] MEDS: Lactated Ringer's 1,000 ML IV SCH ×6 (02:40→21:32)
[2017-05-08 05:52] LABS: BASO % 0.4 % (0.0-2.0); EOS % 0.5 % (0.0-4.0); HEMATOCRIT 33.9 % (34.0-47.0); LYMPH # 2.1 K/uL (1.0-4.3); LYMPH % 30.1 % (20.0-40.0); MEAN CELL VOLUME 91.3 fl (81.0-99.0); MEAN CORPUSCULAR HEMOGLOBIN 30.2 pg (27.0-31.0); MEAN CORPUSCULAR HGB CONC 33.1 g/dL (33.0-37.0); MEAN PLATELET VOLUME 11.6 fl (7.2-11.7); MONO # 0.5 K/uL (0.0-0.8); MONO % 7.2 % (0.0-10.0); NEUT # 4.3 K/uL (1.8-7.0); NEUT % 61.8 % (50.0-75.0); NRBC % 0.1 % (0.0-0.0); RED CELL DISTRIBUTION WIDTH 13.6 % (11.5-14.5)
[2017-05-08 06:46] LABS: ALB/GLOB RATIO 1.1 (1.0-2.1); ALKALINE PHOSPHATASE 144 U/L (38-126); ALT/SGPT 933 U/L (9-52); AST/SGOT 741 U/L (14-36); BILIRUBIN,TOTAL 1.1 mg/dl (0.2-1.3); BLOOD UREA NITROGEN 6 mg/dl (7-17); CALCIUM 8.6 mg/dL (8.4-10.2); CARBON DIOXIDE 27 mmol/L (22-30); CHLORIDE 111 mmol/L (98-107); GFR AFRICAN-AMERICAN > 60; GLUCOSE,RANDOM 94 mg/dL (65-105); POTASSIUM 3.6 MMOL/L (3.6-5.0); SODIUM 144 mmol/l (132-148); TOTAL PROTEIN 6.4 G/DL (6.3-8.2)
--- NOTE | 2017-05-08 07:22 | CP.PCM.PN ---
Subjective - Date & Time of Evaluation Date of Evaluation: 05/08/17 Time of Evaluation: 06:25 - Subjective Subjective: General Surgery Note for Dr. Fabian Patient seen and examined at bedside. No acute vent overnight. Patient restin gin bed comfortably. She states pain has improved. She denies fever/chills and nausea/vomiting. No other complaints at this time. Objective - Vital Signs/Intake and Output Vital Signs (last 24 hours): Temp Pulse Resp BP Pulse Ox 98.1 F 69 20 125/66 98 05/08/17 05:10 05/08/17 05:10 05/08/17 05:10 05/08/17 05:10 05/08/17 05:10 - Medications Medications: Current Medications Hydromorphone HCl (Dilaudid) 1 mg IVP Q6 PRN PRN Reason: Pain, severe (8-10) Hydromorphone HCl (Dilaudid) 0.5 mg IVP Q4 PRN PRN Reason: Pain, moderate (4-7) Stop: 05/09/17 18:50 Lactated Ringer's (Lactated Ringer's) 1,000 mls @ 1,000 mls/hr IV .Q1H [facility] Last Admin: 05/07/17 18:32 Dose: 1,000 mls/hr Lactated Ringer's (Lactated Ringer's) 1,000 mls @ 250 mls/hr IV .Q4H [facility] Last Admin: 05/08/17 06:45 Dose: 250 mls/hr Ondansetron HCl (Zofran Inj) 4 mg IVP Q4 PRN PRN Reason: Nausea/Vomiting - Labs Labs: 05/08/17 04:30 05/08/17 04:30 - Constitutional Appears: No Acute Distress - Head Exam Head Exam: ATRAUMATIC, NORMOCEPHALIC - Eye Exam Eye Exam: EOMI, Normal appearance Pupil Exam: PERRL - ENT Exam ENT Exam: Mucous Membranes Moist - Respiratory Exam Respiratory Exam: NORMAL BREATHING PATTERN - Cardiovascular Exam Cardiovascular Exam: REGULAR RHYTHM - GI/Abdominal Exam GI & Abdominal Exam: Soft, Normal Bowel Sounds. absent: Distended, Firm, Guarding, Rigid, Tenderness, Rebound - Extremities Exam Extremities Exam: Normal Capillary Refill - Neurological Exam Neurological Exam: Alert, Awake, Oriented x3 - Psychiatric Exam Psychiatric exam: Normal Affect, Normal Mood - Skin Skin Exam: Dry, Intact, Normal Color, Warm Assessment and Plan - Assessment and Plan (Free Text) Plan: 56 F with abdominal pain and likely secondary to gallstone pancreatitis US: gallstones, gallbladder wall thickening up to 6.2mm, pericholecystic fluid suggesting acute cholecystitis, CBD 5.2mm MRCP: gallbladder wall diffusely thickened, trace pericholecystic fluid, small ascites, CBD normal caliber without CBD stone; no evidence of pancreatitis - NPO - IV fluids - Analgesics/Anti-emetics PRN - Possible cholecystectomy this admission - Discussed plan with Dr. Rui Garza PGY1
--- NOTE | 2017-05-08 07:41 | CP.PCM.PN ---
Subjective - Date & Time of Evaluation Date of Evaluation: 05/08/17 Time of Evaluation: 07:41 - Subjective Subjective: Progress Note Family Medicine- Dr. Joiner 56 y.o female with PMH of acid reflux, HTN, hypercholesterolemia, Generalized Anxiety Disorder, knee OA, and gallstones admitted for epigastric pain most likely secondary to pancreatitis. Patient reports that when she woke up this morning 5am, her pain was much better. She rates her pain 1/10 today at the same region. She reports that she had a similar pain 3-4 times since the last 3 months. She reports that she notice the pain after she drinks her medication which she drinks 30 minutes after her breakfast. She reports the pain would eventually go away but yesterday the pain was so bad, she decided to go to the ED. She denies nausea, vomitting, fever, shortness of breath, chest pain, chills. Last BM yesterday morning. Denies problems with BM or urinary problems. No problems with walking. [place] [id number] Objective - Vital Signs/Intake and Output Vital Signs (last 24 hours): Temp Pulse Resp BP Pulse Ox 98.1 F 69 20 125/66 98 05/08/17 05:10 05/08/17 05:10 05/08/17 05:10 05/08/17 05:10 05/08/17 05:10 - Medications Medications: Current Medications Hydromorphone HCl (Dilaudid) 1 mg IVP Q6 PRN PRN Reason: Pain, severe (8-10) Hydromorphone HCl (Dilaudid) 0.5 mg IVP Q4 PRN PRN Reason: Pain, moderate (4-7) Stop: 05/09/17 18:50 Lactated Ringer's (Lactated Ringer's) 1,000 mls @ 1,000 mls/hr IV .Q1H [facility] Last Admin: 05/07/17 18:32 Dose: 1,000 mls/hr Lactated Ringer's (Lactated Ringer's) 1,000 mls @ 250 mls/hr IV .Q4H [facility] Last Admin: 05/08/17 06:45 Dose: 250 mls/hr Ondansetron HCl (Zofran Inj) 4 mg IVP Q4 PRN PRN Reason: Nausea/Vomiting - Labs Labs: 05/08/17 04:30 05/08/17 04:30 - Constitutional Appears: Well, Non-toxic, No Acute Distress - Head Exam Head Exam: ATRAUMATIC - Eye Exam Eye Exam: Normal appearance - ENT Exam ENT Exam: Mucous Membranes Moist - Neck Exam Neck Exam: Full ROM - Respiratory Exam Respiratory Exam: Clear to Ausculation Bilateral, NORMAL BREATHING PATTERN. absent: Decreased Breath Sounds, Prolonged Expiratory Phase, Rhonchi, Wheezes, Respiratory Distress, Stridor - Cardiovascular Exam Cardiovascular Exam: REGULAR RHYTHM, RRR, +S1, +S2 - GI/Abdominal Exam GI & Abdominal Exam: Soft, Tenderness, Normal Bowel Sounds. absent: Diminished Bowel Sounds, Hypoactive Bowel Sounds, Pulsatile Mass, Rebound Additional comments: Very mild tenderness upon palpation to the epigastric region - Neurological Exam Neurological Exam: Alert, Awake, Oriented x3 - Psychiatric Exam Psychiatric exam: Normal Affect, Normal Mood Assessment and Plan - Assessment and Plan (Free Text) Assessment: 56 y.o female with PMH of acid reflux, HTN, hypercholesterolemia, Generalized Anxiety Disorder, knee OA, gallstones with acute cholecystitis Plan: 1) Acute Cholecystitis - abdominal U/S (02/11/17) showed cholelitihiasis without cholecystitis - WBC: 7.0 today (15.3 on 05/07/17) - AST 741, ALT 933, Alkaline Phosphatase 144 (05/08/17) AST and ALT elevated from 05/07/17 AST 264, ALT 167, Alkaline Phosphatase 155 (05/07/17) - Lipase: 1563 (05/08/17); Lipase: 95137 (05/07/17) - BISAP score: 0 - Keep NPO Diet - c/w LR 1000 mls @ 200 mls/hr IV .q5h say - Abdominal ultrasound Results (05/07/17): IMPRESSION: "Interval change in the appearance of the gallbladder. Gallstones are not present. Gallbladder wall thickening and edema the pericholecystic fluid present. Although no positive sonographic Rubi sign is reported. The sonographic findings are concerning for interval acute/ subacute cholecystitis" - MRCP Results (05/07/17): IMPRESSION: No evidence of pancreatitis. No evidence of biliary obstruction. Diffuse thickening of the gallbladder wall with trace pericholecystic fluid and trace ascites. Findings raise suspicion of cholecystitis though they are nonspecific. Correlated with abdominal ultrasound examination of the same date, gallstones and mural thickening and pericholecystic fluid were seen. - Surgery consulted- recommendations as follows: "Possible cholecystectomy this admission" - GI consulted- recommendations as follows: "-Clear liquid diet as tolerated - Continue with antibiotic therapy, awaiting blood culture results - Continue with IVF hydration, supportive care - Follow up surgical recommendations - LFTs elevated today, continue to monitor. Obtain viral hepatitis and autoimmune panels. - Will continue to monitor patient clinical course" - Alcohol serum <10 - started Zosyn 4.5g IV q 8 - Dilaudid IV PRN for moderate, severe pain - Zofran 4mg IV q4 PRN - F/U Hepatitis panel, Hepatitis B/C, liver kidney RORY AB, immunoglobulin G - F/U Ceruloplasmin, FARZANA IFA SCR W/REFL TITER, mitochondrial ab w/rfx, smooth muscle AB w/ rfx - F/U CBC in AM - F/U blood culture results 2) HTN -diet controlled 3) Hypercholesterolemia -controlled -Triglycerides 99, cholesterol 202, LDL cholesterol 116, HDL cholesterol 52 - WNL 4) DVT prophylaxis -SCDs 5) Diet -NPO Diet
--- NOTE | 2017-05-08 07:44 | CP.PCM.CON ---
<Cristóbal Alexander - Last Filed: 05/08/17 10:07> History of Present Illness - History of Present Illness History of Present Illness: OGY 4 Initial GI Consult Radha Blake is a 56yoF with a hx of cholelithiasis, anxiety who presented to the ED with epigastric and RUQ abdominal pain. The pain began this morning after breakfast. She notes that the pain radiates to her back. She had some nausea this morning and vomited a small amount. She denies diarrhea, last BM was this morning. She states that the emesis was bilious and denied any blood or coffee-grounds. She notes that her pain initially started 3 months ago and was intermittent. She had an ABd U/S in Jan which only revealed cholelithiasis. Aggravating factors: meals, alleviating factors: none. SHe was found to have elevated LFTs and lipase in the ER. She was given 2L LR and started in 200ml/ hr. MRCP did not reveal any CBD dilation or filling defect or pancreatitis, but notes possible acute cholecystitis. ABd U/S revealed cholelithiasis. She was also started on abx and surgery was consulted. PMHx: acid reflux, HTN (formerly on meds but changed diet and now doesn't need BP meds anymore), prediabetic, Generalized Anxiety Disorder, gallstones PSHx: C-sectionx1 MEDS: Buspirone Social hx: denies smoking, drank socially - hasn't had etoh in 2 years, denies elicit drug use Family Hx: Denies any hx of coon ca, endometrial cancer, pancreatic cancer, gastric and ovarian ca denies Endo hx: Denies ROS: 10 point ROS conducted , neg other than above Past Patient History - Past Medical History & Family History Past Medical History?: Yes - Past Social History Smoking Status: Never Smoked - CARDIAC Hx Cardiac Disorders: Yes - PULMONARY Hx Respiratory Disorders: No - NEUROLOGICAL Hx Neurological Disorder: No - HEENT Hx HEENT Problems: No - RENAL Hx Chronic Kidney Disease: No - ENDOCRINE/METABOLIC Hx Endocrine Disorders: No - HEMATOLOGICAL/ONCOLOGICAL Hx Blood Disorders: No - INTEGUMENTARY Hx Dermatological Problems: No - MUSCULOSKELETAL/RHEUMATOLOGICAL Hx Musculoskeletal Disorders: No Hx Falls: No - GASTROINTESTINAL Hx Gastrointestinal Disorders: No - GENITOURINARY/GYNECOLOGICAL Hx Genitourinary Disorders: No - PSYCHIATRIC Hx Anxiety: Yes - SURGICAL HISTORY Hx Surgeries: Yes Hx Section: Yes - ANESTHESIA Hx Anesthesia: Yes Meds Allergies/Adverse Reactions: Allergies Allergy/AdvReac Type Severity Reaction Status Date / Time shrimp Allergy Severe RASH Verified 05/07/17 12:55 octopus Allergy RASH Verified 05/07/17 12:55 - Medications Medications: Current Medications Hydromorphone HCl (Dilaudid) 1 mg IVP Q6 PRN PRN Reason: Pain, severe (8-10) Hydromorphone HCl (Dilaudid) 0.5 mg IVP Q4 PRN PRN Reason: Pain, moderate (4-7) Stop: 05/09/17 18:50 Lactated Ringer's (Lactated Ringer's) 1,000 mls @ 1,000 mls/hr IV .Q1H [facility] Last Admin: 05/07/17 18:32 Dose: 1,000 mls/hr Lactated Ringer's (Lactated Ringer's) 1,000 mls @ 250 mls/hr IV .Q4H [facility] Last Admin: 05/08/17 06:45 Dose: 250 mls/hr Ondansetron HCl (Zofran Inj) 4 mg IVP Q4 PRN PRN Reason: Nausea/Vomiting Physical Exam - Constitutional Appears: No Acute Distress - Head Exam Head Exam: ATRAUMATIC, NORMOCEPHALIC - Eye Exam Eye Exam: Normal appearance - ENT Exam ENT Exam: Mucous Membranes Moist - Respiratory Exam Respiratory Exam: Clear to Auscultation Bilateral, NORMAL BREATHING PATTERN. absent: Rales, Rhonchi, Wheezes, Respiratory Distress - Cardiovascular Exam Cardiovascular Exam: REGULAR RHYTHM, +S1, +S2 - GI/Abdominal Exam GI & Abdominal Exam: Normal Bowel Sounds, Soft. absent: Diminished Bowel Sounds , Distended, Guarding, Organomegaly, Rigid - Extremities Exam Extremities exam: Negative for: joint swelling, pedal edema - Neurological Exam Neurological exam: Alert, Oriented x3 - Psychiatric Exam Psychiatric exam: Normal Affect, Normal Mood - Skin Skin Exam: Dry, Intact, Normal Color, Warm Results - Vital Signs Recent Vital Signs: Last Vital Signs Temp 98.1 F 05/08/17 05:10 Pulse 69 05/08/17 05:10 Resp 20 05/08/17 05:10 BP 125/66 05/08/17 05:10 Pulse Ox 98 05/08/17 05:10 - Labs Result Diagrams: 05/08/17 04:30 05/08/17 04:30 Labs: Laboratory Results - last 24 hr 05/07/17 05/07/17 05/07/17 14:13 14:13 14:13 WBC 15.3 H D RBC 4.32 Hgb 12.8 Hct 39.0 MCV 90.3 MCH 29.7 MCHC 32.9 L RDW 13.6 Plt Count 191 MPV 11.7 Neut % (Auto) 81.4 H Lymph % (Auto) 13.3 L Mower % (Auto) 4.9 Eos % (Auto) 0.3 Baso % (Auto) 0.1 Neut # 12.5 H Lymph # 2.0 Mower # 0.8 Eos # 0.0 Baso # 0.0 pO2 VBG pH VBG pCO2 VBG HCO3 VBG Total CO2 VBG O2 Sat (Calc) VBG Base Excess VBG Potassium Glucose Lactate FiO2 Sodium 144 Potassium 3.3 L Chloride 104 Carbon Dioxide 24 Anion Gap 19 BUN 16 Creatinine 0.5 L Est GFR ( Amer) > 60 Est GFR (Non-Af Amer) > 60 Random Glucose 111 H Calcium 9.2 Total Bilirubin 0.8 AST 264 H ALT 167 H D Alkaline Phosphatase 155 H Total Protein 8.6 H Albumin 4.8 Globulin 3.8 Albumin/Globulin Ratio 1.3 Triglycerides Cholesterol LDL Cholesterol Direct HDL Cholesterol Lipase 42969 H Venous Blood Potassium Urine Color Yellow Urine Clarity Cloudy Urine pH 6.0 Ur Specific Prospect 1.008 Urine Protein Negative Urine Glucose (UA) Neg Urine Ketones Negative Urine Blood Negative Urine Nitrate Negative Urine Bilirubin Negative Urine Urobilinogen 0.2-1.0 Ur Leukocyte Esterase Neg Urine RBC (Auto) 1 Urine Microscopic WBC 1 Ur Squamous Epith Cells < 1 Urine Bacteria Rare Alcohol, Quantitative 05/07/17 05/07/17 05/08/17 16:10 18:41 04:30 WBC 7.0 D RBC 3.72 L Hgb 11.2 L Hct 33.9 L MCV 91.3 MCH 30.2 MCHC 33.1 RDW 13.6 Plt Count 148 MPV 11.6 Neut % (Auto) 61.8 Lymph % (Auto) 30.1 Mower % (Auto) 7.2 Eos % (Auto) 0.5 Baso % (Auto) 0.4 Neut # 4.3 Lymph # 2.1 Mower # 0.5 Eos # 0.0 Baso # 0.0 pO2 24 L VBG pH 7.37 VBG pCO2 43 VBG HCO3 22.9 VBG Total CO2 26.2 VBG O2 Sat (Calc) 45.6 VBG Base Excess -0.6 L VBG Potassium 3.3 L Glucose 128 H Lactate 1.1 FiO2 21.0 Sodium 139.0 Potassium Chloride 107.0 Carbon Dioxide Anion Gap BUN Creatinine Est GFR ( Amer) Est GFR (Non-Af Amer) Random Glucose Calcium Total Bilirubin AST ALT Alkaline Phosphatase Total Protein Albumin Globulin Albumin/Globulin Ratio Triglycerides 99 D Cholesterol 202 H LDL Cholesterol Direct 116 HDL Cholesterol 52 Lipase Venous Blood Potassium 3.3 L Urine Color Urine Clarity Urine pH Ur Specific Prospect Urine Protein Urine Glucose (UA) Urine Ketones Urine Blood Urine Nitrate Urine Bilirubin Urine Urobilinogen Ur Leukocyte Esterase Urine RBC (Auto) Urine Microscopic WBC Ur Squamous Epith Cells Urine Bacteria Alcohol, Quantitative < 10 05/08/17 05/08/17 04:30 07:04 WBC RBC Hgb Hct MCV MCH MCHC RDW Plt Count MPV Neut % (Auto) Lymph % (Auto) Mower % (Auto) Eos % (Auto) Baso % (Auto) Neut # Lymph # Mower # Eos # Baso # pO2 VBG pH VBG pCO2 VBG HCO3 VBG Total CO2 VBG O2 Sat (Calc) VBG Base Excess VBG Potassium Glucose Lactate FiO2 Sodium 144 Potassium 3.6 Chloride 111 H Carbon Dioxide 27 Anion Gap 10 BUN 6 L Creatinine 0.5 L Est GFR ( Amer) > 60 Est GFR (Non-Af Amer) > 60 Random Glucose 94 Calcium 8.6 Total Bilirubin 1.1 AST 741 H D ALT 933 H D Alkaline Phosphatase 144 H Total Protein 6.4 Albumin 3.4 L D Globulin 3.0 Albumin/Globulin Ratio 1.1 Triglycerides Cholesterol LDL Cholesterol Direct HDL Cholesterol Lipase 1563 H Venous Blood Potassium Urine Color Urine Clarity Urine pH Ur Specific Prospect Urine Protein Urine Glucose (UA) Urine Ketones Urine Blood Urine Nitrate Urine Bilirubin Urine Urobilinogen Ur Leukocyte Esterase Urine RBC (Auto) Urine Microscopic WBC Ur Squamous Epith Cells Urine Bacteria Alcohol, Quantitative Assessment & Plan - Assessment and Plan (Free Text) Assessment: Rosa Blake is a 56F w/ hx of cholelithiasis who presented to the ED with complaints of RUQ and epigastric pain. Etiology is likely 2/2 Acute cholecystitis based on imaging and clinical presentation 1. Acute Cholecystitis 2. Cholelithiasis 3. Elevated LFTS, r/o infectous etiology Plan: - can deescalate fluids to 150cc/hr -unlikely to have pancreatitis due to no findings on imaging -elevated lipase likely 2/2 Acute cholecystitis -elevated LFTs likely 2/2 cholestatis from cholecystitis, but LFTs acutely dany overnight, r/o infectous etilogies -will hold of on ordering any autoimmune w/u for now -trend LFTs -agree with lap melania -advance diet as per surgery -reviewed MRCP, no CBD dilatation or filling defect noted -continue abx Will D/W Dr. West <Elian West - Last Filed: 05/08/17 10:14> Meds - Medications Medications: Current Medications Hydromorphone HCl (Dilaudid) 1 mg IVP Q6 PRN PRN Reason: Pain, severe (8-10) Hydromorphone HCl (Dilaudid) 0.5 mg IVP Q4 PRN PRN Reason: Pain, moderate (4-7) Stop: 05/09/17 18:50 Lactated Ringer's (Lactated Ringer's) 1,000 mls @ 1,000 mls/hr IV .Q1H [facility] Last Admin: 05/07/17 18:32 Dose: 1,000 mls/hr Lactated Ringer's (Lactated Ringer's) 1,000 mls @ 250 mls/hr IV .Q4H [facility] Last Admin: 05/08/17 06:45 Dose: 250 mls/hr Piperacillin Sod/Tazobactam Sod (Zosyn 4.5 Gm Iv Premix) 4.5 gm in 100 mls @ 100 mls/hr IVPB Q8 [facility]AY PRN Reason: Protocol Ondansetron HCl (Zofran Inj) 4 mg IVP Q4 PRN PRN Reason: Nausea/Vomiting Results - Vital Signs Recent Vital Signs: Last Vital Signs Temp 98.3 F 05/08/17 08:00 Pulse 64 05/08/17 09:00 Resp 20 05/08/17 08:00 BP 119/76 05/08/17 08:00 Pulse Ox 98 05/08/17 08:00 - Labs Result Diagrams: 05/08/17 04:30 05/08/17 04:30 Labs: Laboratory Results - last 24 hr 05/07/17 05/07/17 05/07/17 14:13 14:13 14:13 WBC 15.3 H D RBC 4.32 Hgb 12.8 Hct 39.0 MCV 90.3 MCH 29.7 MCHC 32.9 L RDW 13.6 Plt Count 191 MPV 11.7 Neut % (Auto) 81.4 H Lymph % (Auto) 13.3 L Mower % (Auto) 4.9 Eos % (Auto) 0.3 Baso % (Auto) 0.1 Neut # 12.5 H Lymph # 2.0 Mower # 0.8 Eos # 0.0 Baso # 0.0 pO2 VBG pH VBG pCO2 VBG HCO3 VBG Total CO2 VBG O2 Sat (Calc) VBG Base Excess VBG Potassium Glucose Lactate FiO2 Sodium 144 Potassium 3.3 L Chloride 104 Carbon Dioxide 24 Anion Gap 19 BUN 16 Creatinine 0.5 L Est GFR ( Amer) > 60 Est GFR (Non-Af Amer) > 60 Random Glucose 111 H Calcium 9.2 Total Bilirubin 0.8 AST 264 H ALT 167 H D Alkaline Phosphatase 155 H Total Protein 8.6 H Albumin 4.8 Globulin 3.8 Albumin/Globulin Ratio 1.3 Triglycerides Cholesterol LDL Cholesterol Direct HDL Cholesterol Lipase 55932 H Venous Blood Potassium Urine Color Yellow Urine Clarity Cloudy Urine pH 6.0 Ur Specific [place] 1.008 Urine Protein Negative Urine Glucose (UA) Neg Urine Ketones Negative Urine Blood Negative Urine Nitrate Negative Urine Bilirubin Negative Urine Urobilinogen 0.2-1.0 Ur Leukocyte Esterase Neg Urine RBC (Auto) 1 Urine Microscopic WBC 1 Ur Squamous Epith Cells < 1 Urine Bacteria Rare Alcohol, Quantitative 05/07/17 05/07/17 05/08/17 16:10 18:41 04:30 WBC 7.0 D RBC 3.72 L Hgb 11.2 L Hct 33.9 L MCV 91.3 MCH 30.2 MCHC 33.1 RDW 13.6 Plt Count 148 MPV 11.6 Neut % (Auto) 61.8 Lymph % (Auto) 30.1 Mower % (Auto) 7.2 Eos % (Auto) 0.5 Baso % (Auto) 0.4 Neut # 4.3 Lymph # 2.1 Mower # 0.5 Eos # 0.0 Baso # 0.0 pO2 24 L VBG pH 7.37 VBG pCO2 43 VBG HCO3 22.9 VBG Total CO2 26.2 VBG O2 Sat (Calc) 45.6 VBG Base Excess -0.6 L VBG Potassium 3.3 L Glucose 128 H Lactate 1.1 FiO2 21.0 Sodium 139.0 Potassium Chloride 107.0 Carbon Dioxide Anion Gap BUN Creatinine Est GFR ( Amer) Est GFR (Non-Af Amer) Random Glucose Calcium Total Bilirubin AST ALT Alkaline Phosphatase Total Protein Albumin Globulin Albumin/Globulin Ratio Triglycerides 99 D Cholesterol 202 H LDL Cholesterol Direct 116 HDL Cholesterol 52 Lipase Venous Blood Potassium 3.3 L Urine Color Urine Clarity Urine pH Ur Specific Prospect Urine Protein Urine Glucose (UA) Urine Ketones Urine Blood Urine Nitrate Urine Bilirubin Urine Urobilinogen Ur Leukocyte Esterase Urine RBC (Auto) Urine Microscopic WBC Ur Squamous Epith Cells Urine Bacteria Alcohol, Quantitative < 10 05/08/17 05/08/17 04:30 07:04 WBC RBC Hgb Hct MCV MCH MCHC RDW Plt Count MPV Neut % (Auto) Lymph % (Auto) Mower % (Auto) Eos % (Auto) Baso % (Auto) Neut # Lymph # Mower # Eos # Baso # pO2 VBG pH VBG pCO2 VBG HCO3 VBG Total CO2 VBG O2 Sat (Calc) VBG Base Excess VBG Potassium Glucose Lactate FiO2 Sodium 144 Potassium 3.6 Chloride 111 H Carbon Dioxide 27 Anion Gap 10 BUN 6 L Creatinine 0.5 L Est GFR ( Amer) > 60 Est GFR (Non-Af Amer) > 60 Random Glucose 94 Calcium 8.6 Total Bilirubin 1.1 AST 741 H D ALT 933 H D Alkaline Phosphatase 144 H Total Protein 6.4 Albumin 3.4 L D Globulin 3.0 Albumin/Globulin Ratio 1.1 Triglycerides Cholesterol LDL Cholesterol Direct HDL Cholesterol Lipase 1563 H Venous Blood Potassium Urine Color Urine Clarity Urine pH Ur Specific Prospect Urine Protein Urine Glucose (UA) Urine Ketones Urine Blood Urine Nitrate Urine Bilirubin Urine Urobilinogen Ur Leukocyte Esterase Urine RBC (Auto) Urine Microscopic WBC Ur Squamous Epith Cells Urine Bacteria Alcohol, Quantitative Attending/Attestation - Attestation I have personally seen and examined this patient.: Yes I have fully participated in the care of the patient.: Yes I have reviewed all pertinent clinical information: Yes Notes (Text): 05/08/17 10:09 I have seen and examined patient with GI fellow. Agree with above documentation with the following additions. In brief, this is a 56 year old female with history of anxiety, cholelithiasis who presents to hospital with complaint of progressive severe abdominal pain. She describes a sharp, 8/10 intensity epigastric abdominal pain radiating to back which became intolerable yesterday. She has had intermittent similar pain for the past 3 months that is typically worsened by fatty meal consumption. She denies recent fever/chills, weight loss, or change in bowel habits. No prior liver related abnormalities as per patient. No prior endoscopic evaluation. Anxiety Progressive abdominal pain Transaminitis US and MRCP imaging reviewed by me showing features suggestive of acute cholecystitis. No biliary dilation, normal appearing pancreas. - Clear liquid diet as tolerated - Continue with antibiotic therapy, awaiting blood culture results - Continue with IVF hydration, supportive care - Follow up surgical recommendations - LFTs elevated today, continue to monitor. Obtain viral hepatitis and autoimmune panels. - Will continue to monitor patient clinical course
[2017-05-08] MEDS ORDERED: Enoxaparin 40 mg Syringe SC SCH (09:00)
--- NOTE | 2017-05-08 11:01 | CARD ---
APPROVED REPORT EKG Measurement Heart [id number] <Conclusion> Normal sinus rhythm Normal ECG
[2017-05-08] MEDS: Piperacill/Tazo 4.5gm in Dex 4.5 GM/100 ML BAG IVPB SCH ×2 (12:09→17:19)
[2017-05-09] MEDS: Piperacill/Tazo 4.5gm in Dex 4.5 GM/100 ML BAG IVPB SCH ×3 (00:16→17:21)
[2017-05-09] MEDS: Lactated Ringer's 1,000 ML IV SCH ×3 (02:18→15:21)
[2017-05-09 05:52] LABS: HEMATOCRIT 35.5 % (34.0-47.0); MEAN CELL VOLUME 92.3 fl (81.0-99.0); MEAN CORPUSCULAR HEMOGLOBIN 30.2 pg (27.0-31.0); MEAN CORPUSCULAR HGB CONC 32.7 g/dL (33.0-37.0); RED CELL DISTRIBUTION WIDTH 13.8 % (11.5-14.5)
[2017-05-09 06:14] LABS: ALB/GLOB RATIO 1.2 (1.0-2.1); ALKALINE PHOSPHATASE 143 U/L (38-126); ALT/SGPT 642 U/L (9-52); AST/SGOT 237 U/L (14-36); BILIRUBIN,TOTAL 1.3 mg/dl (0.2-1.3); BLOOD UREA NITROGEN 6 mg/dl (7-17); CALCIUM 9.1 mg/dL (8.4-10.2); CARBON DIOXIDE 27 mmol/L (22-30); CHLORIDE 110 mmol/L (98-107); GFR AFRICAN-AMERICAN > 60; GLUCOSE,RANDOM 82 mg/dL (65-105); SODIUM 145 mmol/l (132-148); TOTAL PROTEIN 6.8 G/DL (6.3-8.2)
[2017-05-09 06:37] LABS: PARTIAL THROMBOPLASTIN TIME 31.8 Seconds (25.6-37.1)
--- NOTE | 2017-05-09 08:09 | CP.PCM.PN ---
Subjective - Date & Time of Evaluation Date of Evaluation: 05/09/17 Time of Evaluation: 07:45 - Subjective Subjective: Pt seen and examined at bedside this AM. Pt is lying in bed, appears comfortable , not in acute distress. No overnight events. Pt reports mild epigastric pain. Denies nausea, vomiting, fever, chills, chest pain or dyspnea. Reports no BM yesterday or this AM. Pt is scheduled for lap melania on Friday. Objective - Vital Signs/Intake and Output Vital Signs (last 24 hours): Temp Pulse Resp BP Pulse Ox 98.1 F 64 20 126/67 99 05/09/17 08:00 05/09/17 08:00 05/09/17 08:00 05/09/17 08:00 05/09/17 08:00 - Medications Medications: Current Medications Hydromorphone HCl (Dilaudid) 1 mg IVP Q6 PRN PRN Reason: Pain, severe (8-10) Hydromorphone HCl (Dilaudid) 0.5 mg IVP Q4 PRN PRN Reason: Pain, moderate (4-7) Stop: 05/09/17 18:50 Lactated Ringer's (Lactated Ringer's) 1,000 mls @ 250 mls/hr IV .Q4H [facility] Last Admin: 05/09/17 06:15 Dose: 250 mls/hr Piperacillin Sod/Tazobactam Sod (Zosyn 4.5 Gm Iv Premix) 4.5 gm in 100 mls @ 100 mls/hr IVPB Q8 JAY PRN Reason: Protocol Last Admin: 05/09/17 00:16 Dose: 100 mls/hr Ondansetron HCl (Zofran Inj) 4 mg IVP Q4 PRN PRN Reason: Nausea/Vomiting - Labs Labs: 05/09/17 05:40 05/09/17 05:40 PT 12.3 Seconds (9.8-13.1) 05/09/17 05:40 INR 1.1 (0.9-1.2) 05/09/17 05:40 APTT 31.8 Seconds (25.6-37.1) 05/09/17 05:40 - Constitutional Appears: Non-toxic, No Acute Distress - Head Exam Head Exam: NORMAL INSPECTION, NORMOCEPHALIC - ENT Exam ENT Exam: Mucous Membranes Moist - Neck Exam Neck Exam: Full ROM, Normal Inspection - Respiratory Exam Respiratory Exam: Clear to Ausculation Bilateral, NORMAL BREATHING PATTERN. absent: Rales, Rhonchi, Wheezes - Cardiovascular Exam Cardiovascular Exam: REGULAR RHYTHM, RRR, +S1, +S2. absent: Gallop, Murmur - GI/Abdominal Exam GI & Abdominal Exam: Soft, Normal Bowel Sounds. absent: Guarding, Rigid, Rebound Additional comments: Mild epigastric tenderness, no rebound tenderness or guarding. - Extremities Exam Extremities Exam: Normal Capillary Refill, Normal Inspection. absent: Calf Tenderness, Pedal Edema - Neurological Exam Neurological Exam: Alert, Awake, Oriented x3 - Psychiatric Exam Psychiatric exam: Normal Affect, Normal Mood - Skin Skin Exam: Normal Color. absent: Rash Assessment and Plan - Assessment and Plan (Free Text) Assessment: 56 y.o female with PMH of acid reflux, HTN, hypercholesterolemia, Generalized Anxiety Disorder, knee OA, gallstones admitted for acute cholecystitis. Plan: Pt is to go to OR on Friday for lap melania. Acute Cholecystitis: -Surgery scheduled on Friday for lap melania. -Abdominal U/S on 05/07/17: acute/subacute cholecystitis. -MRCP on 05/07/17: No evidence of pancreatitis. No evidence of biliary obstruction. Diffuse thickening of the gallbladder wall with trace pericholecystic fluid and trace ascites. Findings raise suspicion of cholecystitis though they are nonspecific -Continue Zosyn 4.5g IV q 8 ( Start date: 05/08/17) -WBC: 5.0 today (15.3 on 05/07/17) - Lipase: 1563 (05/08/17); Lipase: 84107 on admission. - BISAP score: 0 - LR 1000 mls @ 125 mls/hr IV - Blood culture: no growth after 24 hrs. Elevated transaminitis: -GI consult appreciated. -Trending down - AST 237 - ALT 642 - Alkaline Phosphatase 143. -Negative hepatitis panel - F/U Ceruloplasmin, FARZANA IFA SCR W/REFL TITER, mitochondrial ab w/rfx, smooth muscle AB w/ rfx, liver kidney RORY AB, immunoglobulin G - F/U CMP in AM HTN -diet controlled -Stable Hypercholesterolemia -Controlled -Triglycerides 99, cholesterol 202, LDL cholesterol 116, HDL cholesterol 52 - WNL DVT prophylaxis -SCDs Diet -[place] diet -Advance as tolerated. Code Status: -Full code
--- NOTE | 2017-05-09 08:18 | CP.PCM.PN ---
<Cristóbal Alexander - Last Filed: 05/09/17 08:48> Subjective - Date & Time of Evaluation Date of Evaluation: 05/09/17 Time of Evaluation: 07:00 - Subjective Subjective: PGY4 GI Follow up Pt seen and examined bedside still NPO States that she had some epigastric discomfort due to being hungry Denies BM +VOID +flatus ROS: 10 point ROS conducted, neg other than above Objective - Vital Signs/Intake and Output Vital Signs (last 24 hours): Temp Pulse Resp BP Pulse Ox 98.1 F 64 20 126/67 99 05/09/17 08:00 05/09/17 08:00 05/09/17 08:00 05/09/17 08:00 05/09/17 08:00 - Medications Medications: Current Medications Hydromorphone HCl (Dilaudid) 1 mg IVP Q6 PRN PRN Reason: Pain, severe (8-10) Hydromorphone HCl (Dilaudid) 0.5 mg IVP Q4 PRN PRN Reason: Pain, moderate (4-7) Stop: 05/09/17 18:50 Lactated Ringer's (Lactated Ringer's) 1,000 mls @ 250 mls/hr IV .Q4H [facility] Last Admin: 05/09/17 06:15 Dose: 250 mls/hr Piperacillin Sod/Tazobactam Sod (Zosyn 4.5 Gm Iv Premix) 4.5 gm in 100 mls @ 100 mls/hr IVPB Q8 JAY PRN Reason: Protocol Last Admin: 05/09/17 00:16 Dose: 100 mls/hr Ondansetron HCl (Zofran Inj) 4 mg IVP Q4 PRN PRN Reason: Nausea/Vomiting - Labs Labs: 05/09/17 05:40 05/09/17 05:40 PT 12.3 Seconds (9.8-13.1) 05/09/17 05:40 INR 1.1 (0.9-1.2) 05/09/17 05:40 APTT 31.8 Seconds (25.6-37.1) 05/09/17 05:40 - Constitutional Appears: Well, No Acute Distress - Head Exam Head Exam: ATRAUMATIC, NORMOCEPHALIC - Eye Exam Eye Exam: Normal appearance - ENT Exam ENT Exam: Mucous Membranes Moist - Respiratory Exam Respiratory Exam: Clear to Ausculation Bilateral, NORMAL BREATHING PATTERN. absent: Rales, Rhonchi, Wheezes, Respiratory Distress - Cardiovascular Exam Cardiovascular Exam: REGULAR RHYTHM, +S1, +S2 - GI/Abdominal Exam GI & Abdominal Exam: Soft, Normal Bowel Sounds. absent: Guarding, Rigid, Tenderness, Hypoactive Bowel Sounds, Rebound - Extremities Exam Extremities Exam: absent: Joint Swelling, Pedal Edema - Neurological Exam Neurological Exam: Alert, Awake, Oriented x3 - Psychiatric Exam Psychiatric exam: Normal Affect, Normal Mood - Skin Skin Exam: Dry, Intact, Normal Color, Warm Assessment and Plan - Assessment and Plan (Free Text) Assessment: Rosa Blake is a 56F w/ hx of cholelithiasis who presented to the ED with complaints of RUQ and epigastric pain. Etiology is likely 2/2 Acute cholecystitis based on imaging and clinical presentation 1. Acute Cholecystitis 2. Cholelithiasis 3. Elevated LFTS, improving, likely passed stone Plan: - can deescalate fluids to 150cc/hr -unlikely to have pancreatitis due to no findings on imaging -elevated lipase likely 2/2 Acute cholecystitis -LFTs improving, likely passed a stone -agree with lap melania -talked with surgical nurse practitioner, expressed no need for ERCP at this time -will sign off -recommend screening colonscopy as an oupt D/W Dr. West <Elian West - Last Filed: 05/09/17 09:01> Objective - Vital Signs/Intake and Output Vital Signs (last 24 hours): Temp Pulse Resp BP Pulse Ox 98.1 F 64 20 126/67 99 05/09/17 08:00 05/09/17 08:00 05/09/17 08:00 05/09/17 08:00 05/09/17 08:00 - Medications Medications: Current Medications Buspirone HCl (Buspar) 5 mg PO ONCE ONE Stop: 05/09/17 08:26 Hydromorphone HCl (Dilaudid) 1 mg IVP Q6 PRN PRN Reason: Pain, severe (8-10) Hydromorphone HCl (Dilaudid) 0.5 mg IVP Q4 PRN PRN Reason: Pain, moderate (4-7) Stop: 11/24/17 18:50 Lactated Ringer's (Lactated Ringer's) 1,000 mls @ 250 mls/hr IV .Q4H [facility] Last Admin: 05/09/17 06:15 Dose: 250 mls/hr Piperacillin Sod/Tazobactam Sod (Zosyn 4.5 Gm Iv Premix) 4.5 gm in 100 mls @ 100 mls/hr IVPB Q8 JAY PRN Reason: Protocol Last Admin: 05/09/17 08:17 Dose: 100 mls/hr Ondansetron HCl (Zofran Inj) 4 mg IVP Q4 PRN PRN Reason: Nausea/Vomiting - Labs Labs: 05/09/17 05:40 05/09/17 05:40 PT 12.3 Seconds (9.8-13.1) 05/09/17 05:40 INR 1.1 (0.9-1.2) 05/09/17 05:40 APTT 31.8 Seconds (25.6-37.1) 05/09/17 05:40 Attending/Attestation - Attestation I have personally seen and examined this patient.: Yes I have fully participated in the care of the patient.: Yes I have reviewed all pertinent clinical information, including history, physical exam and plan: Yes Notes (Text): 05/09/17 08:59 I have seen and examined patient with GI fellow. No acute events overnight. Her abdominal pain has slightly improved, though still present in epigastric region. She denies nausea, vomiting, fever/chills. She is hungry, asking for diet to be advanced. Review of vitals from today are normal. Abdominal pain - Acute cholecystitis Transaminitis - Full liquid diet as tolerated - Continue with antibiotic therapy, follow up blood culture results - LFTs trending down, continue to monitor - Further management as per surgical team regarding potential timing of cholecystectomy - Will sign off case, please reconsult as necessary, thank you.
--- NOTE | 2017-05-09 09:06 | CP.PCM.PN ---
Subjective - Date & Time of Evaluation Date of Evaluation: 05/09/17 Time of Evaluation: 08:20 - Subjective Subjective: General Surgery Dr. Fabian Pt S&E @bedside. NAEO. pt reports much improved abd pain. denies F/C, N/V, D/C. pt has been NPO and, today, c/o hunger. Objective - Vital Signs/Intake and Output Vital Signs (last 24 hours): Temp Pulse Resp BP Pulse Ox 98.1 F 64 20 126/67 99 05/09/17 08:00 05/09/17 08:00 05/09/17 08:00 05/09/17 08:00 05/09/17 08:00 - Medications Medications: Current Medications Hydromorphone HCl (Dilaudid) 1 mg IVP Q6 PRN PRN Reason: Pain, severe (8-10) Hydromorphone HCl (Dilaudid) 0.5 mg IVP Q4 PRN PRN Reason: Pain, moderate (4-7) Stop: 05/09/17 18:50 Lactated Ringer's (Lactated Ringer's) 1,000 mls @ 250 mls/hr IV .Q4H JAY Last Admin: 05/09/17 06:15 Dose: 250 mls/hr Piperacillin Sod/Tazobactam Sod (Zosyn 4.5 Gm Iv Premix) 4.5 gm in 100 mls @ 100 mls/hr IVPB Q8 JAY PRN Reason: Protocol Last Admin: 05/09/17 08:17 Dose: 100 mls/hr Ondansetron HCl (Zofran Inj) 4 mg IVP Q4 PRN PRN Reason: Nausea/Vomiting - Labs Labs: 05/09/17 05:40 05/09/17 05:40 PT 12.3 Seconds (9.8-13.1) 05/09/17 05:40 INR 1.1 (0.9-1.2) 05/09/17 05:40 APTT 31.8 Seconds (25.6-37.1) 05/09/17 05:40 - Constitutional Appears: Non-toxic, No Acute Distress - Head Exam Head Exam: NORMAL INSPECTION - Eye Exam Eye Exam: Normal appearance - ENT Exam ENT Exam: Mucous Membranes Moist - Respiratory Exam Respiratory Exam: NORMAL BREATHING PATTERN. absent: Accessory Muscle Use, Respiratory Distress - Cardiovascular Exam Cardiovascular Exam: absent: Bradycardia, Tachycardia - GI/Abdominal Exam GI & Abdominal Exam: Soft. absent: Distended, Guarding, Tenderness, Rebound - Extremities Exam Extremities Exam: Normal Inspection - Neurological Exam Neurological Exam: Alert, Awake, Oriented x3 - Psychiatric Exam Psychiatric exam: Normal Affect, Normal Mood - Skin Skin Exam: Dry, Intact, Normal Color, Warm Assessment and Plan - Assessment and Plan (Free Text) Assessment: 56 y/o F w/ improved abd pain 2/2 acute cholecystitis vs pancreatitis - Per GI: pt has acute melania and recommending surgery - cont IV Abx - cont pain management - possible OR today for Lap melania - encourage OOB to chair/Amb Will discuss w/ Dr. Rui Farnsworth DO PGY2
[2017-05-10] MEDS: Piperacill/Tazo 4.5gm in Dex 4.5 GM/100 ML BAG IVPB SCH ×3 (01:10→16:44)
[2017-05-10] MEDS: Lactated Ringer's 1,000 ML IV SCH ×2 (02:30→11:12)
[2017-05-10 08:07] LABS: HEMATOCRIT 36.9 % (34.0-47.0); MEAN CELL VOLUME 91.4 fl (81.0-99.0); MEAN CORPUSCULAR HEMOGLOBIN 30.3 pg (27.0-31.0); MEAN CORPUSCULAR HGB CONC 33.2 g/dL (33.0-37.0); RED CELL DISTRIBUTION WIDTH 13.6 % (11.5-14.5); WHITE BLOOD COUNT 5.2 K/uL (4.8-10.8)
--- NOTE | 2017-05-10 08:56 | CP.PCM.PN ---
Subjective - Date & Time of Evaluation Date of Evaluation: 05/10/17 Time of Evaluation: 08:55 - Subjective Subjective: Gen Sx: Dr Fabian Pt S&E. NAEO. Reports abdominal pain has resolved. Denies N/V, F/C. Tolerating liquid diet. Objective - Vital Signs/Intake and Output Vital Signs (last 24 hours): Temp Pulse Resp BP Pulse Ox 98.3 F 58 L 20 129/71 99 05/10/17 08:17 05/10/17 08:17 05/10/17 08:17 05/10/17 08:17 05/10/17 08:17 - Medications Medications: Current Medications Buspirone HCl (Buspar) 5 mg PO BID [facility] Last Admin: 05/09/17 17:22 Dose: 5 mg Hydromorphone HCl (Dilaudid) 1 mg IVP Q6 PRN PRN Reason: Pain, severe (8-10) Piperacillin Sod/Tazobactam Sod (Zosyn 4.5 Gm Iv Premix) 4.5 gm in 100 mls @ 100 mls/hr IVPB Q8 JAY PRN Reason: Protocol Last Admin: 05/10/17 01:10 Dose: 100 mls/hr Lactated Ringer's (Lactated Ringer's) 1,000 mls @ 125 mls/hr IV .Q8H [facility] Last Admin: 05/09/17 15:21 Dose: 125 mls/hr Ondansetron HCl (Zofran Inj) 4 mg IVP Q4 PRN PRN Reason: Nausea/Vomiting - Labs Labs: 05/10/17 06:30 05/09/17 05:40 PT 12.3 Seconds (9.8-13.1) 05/09/17 05:40 INR 1.1 (0.9-1.2) 05/09/17 05:40 APTT 31.8 Seconds (25.6-37.1) 05/09/17 05:40 - Constitutional Appears: Non-toxic, No Acute Distress - Respiratory Exam Respiratory Exam: absent: Accessory Muscle Use, Respiratory Distress - Cardiovascular Exam Cardiovascular Exam: absent: Tachycardia - GI/Abdominal Exam GI & Abdominal Exam: Soft. absent: Distended, Firm, Tenderness - Neurological Exam Neurological Exam: Alert, Awake, Oriented x3 - Psychiatric Exam Psychiatric exam: Normal Affect, Normal Mood - Skin Skin Exam: Normal Color, Warm Assessment and Plan - Assessment and Plan (Free Text) Assessment: 56F with gallstones pancreatitis; resolving Plan: -cont IVF, anti-emetics and pain control PRN -if pain recurs, put back on CLD. Usually pt remains on CLD until cholecystectomy -plan for lap melania on friday d/w Dr Rui Garcia, PGY3
[2017-05-10 09:01] LABS: ALB/GLOB RATIO 1.2 (1.0-2.1); ALKALINE PHOSPHATASE 132 U/L (38-126); ALT/SGPT 452 U/L (9-52); AST/SGOT 92 U/L (14-36); BILIRUBIN,TOTAL 1.3 mg/dl (0.2-1.3); BLOOD UREA NITROGEN 6 mg/dl (7-17); CALCIUM 9.2 mg/dL (8.4-10.2); CARBON DIOXIDE 28 mmol/L (22-30); CHLORIDE 106 mmol/L (98-107); GFR AFRICAN-AMERICAN > 60; GLUCOSE,RANDOM 84 mg/dL (65-105); POTASSIUM 3.5 MMOL/L (3.6-5.0); SODIUM 144 mmol/l (132-148); TOTAL PROTEIN 7.4 G/DL (6.3-8.2)
--- NOTE | 2017-05-10 09:25 | CP.PCM.PN ---
Subjective - Date & Time of Evaluation Date of Evaluation: 05/10/17 Time of Evaluation: 09:15 - Subjective Subjective: Pt. seen walking the hallway. Pt. subsequently examined in her room. Pt. with no complaints at this time. Overnight events reviewed and unremarkable. Objective - Vital Signs/Intake and Output Vital Signs (last 24 hours): Temp Pulse Resp BP Pulse Ox 98.3 F 58 L 20 129/71 99 05/10/17 08:17 05/10/17 08:17 05/10/17 08:17 05/10/17 08:17 05/10/17 08:17 - Medications Medications: Current Medications Buspirone HCl (Buspar) 5 mg PO BID [facility] Last Admin: 05/09/17 17:22 Dose: 5 mg Hydromorphone HCl (Dilaudid) 1 mg IVP Q6 PRN PRN Reason: Pain, severe (8-10) Piperacillin Sod/Tazobactam Sod (Zosyn 4.5 Gm Iv Premix) 4.5 gm in 100 mls @ 100 mls/hr IVPB Q8 JAY PRN Reason: Protocol Last Admin: 05/10/17 01:10 Dose: 100 mls/hr Lactated Ringer's (Lactated Ringer's) 1,000 mls @ 125 mls/hr IV .Q8H JAY Last Admin: 05/09/17 15:21 Dose: 125 mls/hr Ondansetron HCl (Zofran Inj) 4 mg IVP Q4 PRN PRN Reason: Nausea/Vomiting - Labs Labs: 05/10/17 06:30 05/10/17 06:30 PT 12.3 Seconds (9.8-13.1) 05/09/17 05:40 INR 1.1 (0.9-1.2) 05/09/17 05:40 APTT 31.8 Seconds (25.6-37.1) 05/09/17 05:40 - Constitutional Appears: Non-toxic, No Acute Distress - Eye Exam Eye Exam: Normal appearance. absent: Scleral icterus - ENT Exam ENT Exam: Mucous Membranes Moist - Neck Exam Neck Exam: Full ROM, Normal Inspection - Respiratory Exam Respiratory Exam: Clear to Ausculation Bilateral, NORMAL BREATHING PATTERN - Cardiovascular Exam Cardiovascular Exam: REGULAR RHYTHM, +S1, +S2 - GI/Abdominal Exam GI & Abdominal Exam: Soft. absent: Tenderness - Extremities Exam Extremities Exam: Normal Inspection. absent: Calf Tenderness - Neurological Exam Neurological Exam: Alert, Awake, Oriented x3 - Psychiatric Exam Psychiatric exam: Normal Affect, Normal Mood Assessment and Plan - Assessment and Plan (Free Text) Assessment: 56 y.o female with PMHx of gallstones admitted for gallstone pancreatitis now resolved now with acute cholecystitis Acute Cholecystitis: -Surgery scheduled on Friday for lap melania as per Surgery team. -Transamanases starting to trend down but still remain elevated -Continue Zosyn 4.5g IV q 8 ( Start date: 05/08/17) -F/U Ceruloplasmin, FARZANA IFA SCR W/REFL TITER, mitochondrial ab w/rfx, smooth muscle AB w/ rfx, liver kidney RORY AB, immunoglobulin Diet -Will change diet to Clears given Transamanitis still elevated and pt. scheduled for O.R. on friday -NPO after midnight on Friday05/11/17 DVT prophylaxis -SCDs -Encourage ambulation Code Status: -Full code
[2017-05-10] MEDS: Potassium Chloride 20 mEq ER Tab PO SCH (11:12)
[2017-05-11] MEDS: Piperacill/Tazo 4.5gm in Dex 4.5 GM/100 ML BAG IVPB SCH ×3 (01:32→16:59)
[2017-05-11] MEDS: Potassium Chloride 20 mEq ER Tab PO SCH (09:54)
--- NOTE | 2017-05-11 11:06 | CP.PCM.PN ---
Subjective - Date & Time of Evaluation Date of Evaluation: 05/11/17 Time of Evaluation: 09:40 - Subjective Subjective: Pt seen and examined at bedside this AM. Lying in bed comfortably. Not in acute distress. No overnight events. Pt denies abomdinal pain, nausea, vomiting, fever, chills, chest pain or dyspnea. Had normal BM last night. Pt is scheduled for lap melania tomorrow. Objective - Vital Signs/Intake and Output Vital Signs (last 24 hours): Temp Pulse Resp BP Pulse Ox 97.9 F 58 L 18 112/55 L 99 05/11/17 09:00 05/11/17 09:00 05/11/17 09:00 05/11/17 09:00 05/11/17 09:00 - Medications Medications: Current Medications Buspirone HCl (Buspar) 5 mg PO BID [facility] Last Admin: 05/11/17 09:54 Dose: Not Given Piperacillin Sod/Tazobactam Sod (Zosyn 4.5 Gm Iv Premix) 4.5 gm in 100 mls @ 100 mls/hr IVPB Q8 JAY PRN Reason: Protocol Last Admin: 05/11/17 09:55 Dose: 100 mls/hr Lactated Ringer's (Lactated Ringer's) 1,000 mls @ 125 mls/hr IV .Q8H [facility] Last Admin: 05/10/17 11:12 Dose: 125 mls/hr Ondansetron HCl (Zofran Inj) 4 mg IVP Q4 PRN PRN Reason: Nausea/Vomiting Potassium Chloride (K-Dur 20 Meq Er Tab) 20 meq PO DAILY [facility] Last Admin: 05/11/17 09:54 Dose: 20 meq - Labs Labs: 05/10/17 06:30 05/10/17 06:30 PT 12.3 Seconds (9.8-13.1) 05/09/17 05:40 INR 1.1 (0.9-1.2) 05/09/17 05:40 APTT 31.8 Seconds (25.6-37.1) 05/09/17 05:40 - Constitutional Appears: Non-toxic, No Acute Distress - Head Exam Head Exam: ATRAUMATIC, NORMAL INSPECTION, NORMOCEPHALIC - ENT Exam ENT Exam: Mucous Membranes Moist - Neck Exam Neck Exam: Full ROM, Normal Inspection - Respiratory Exam Respiratory Exam: Clear to Ausculation Bilateral, NORMAL BREATHING PATTERN. absent: Rales, Rhonchi, Wheezes - Cardiovascular Exam Cardiovascular Exam: REGULAR RHYTHM, RRR, +S1. absent: Gallop - GI/Abdominal Exam GI & Abdominal Exam: Soft, Normal Bowel Sounds. absent: Guarding, Tenderness, Rebound - Extremities Exam Extremities Exam: Normal Capillary Refill, Normal Inspection. absent: Calf Tenderness, Pedal Edema - Neurological Exam Neurological Exam: Alert, Awake, Oriented x3 - Psychiatric Exam Psychiatric exam: Normal Affect, Normal Mood - Skin Skin Exam: Normal Color, Warm Assessment and Plan - Assessment and Plan (Free Text) Assessment: 56 y.o female with PMHx of gallstones admitted for gallstone pancreatitis now resolved now with acute cholecystitis Plan: Acute Cholecystitis: -Surgery scheduled on Friday for lap melania. -Abdominal U/S on 05/07/17: acute/subacute cholecystitis. -MRCP on 05/07/17: No evidence of pancreatitis. No evidence of biliary obstruction. Diffuse thickening of the gallbladder wall with trace pericholecystic fluid and trace ascites. Findings raise suspicion of cholecystitis though they are nonspecific -Continue Zosyn 4.5g IV q 8 ( Start date: 05/08/17) -Start NS IV @80mls/hr -WBC: 5.2 today -Lipase: 1563 (05/08/17); Lipase: 80903 on admission. -BISAP score: 0 -Blood culture: no growth after 3 days. Elevated transaminitis: -GI consult appreciated. -Transaminase levels trending down -Negative hepatitis panel - F/U Ceruloplasmin, FARZANA IFA SCR W/REFL TITER, mitochondrial ab w/rfx, smooth muscle AB w/ rfx, liver kidney RORY AB, immunoglobulin G - F/U CMP in AM Hypokalemia: -Asymptomatic -K: 3.5 -NS IV @80mls/hr w/ 20 KCl meq. -Continue with KCl 20 meq PO daily. HTN -diet controlled -Stable Hypercholesterolemia -Controlled -Triglycerides 99, cholesterol 202, LDL cholesterol 116, HDL cholesterol 52 - WNL DVT prophylaxis -SCDs -Encourage ambulation. Diet -Clear diet -NPO after [place] Code Status: -Full code
--- NOTE | 2017-05-11 11:09 | CP.PCM.PN ---
Subjective - Date & Time of Evaluation Date of Evaluation: 05/11/17 Time of Evaluation: 11:07 - Subjective Subjective: Gen Sx: Dr Fabian Pt S&E. NAEO. Denies pain at this time. States has minimal epigastric pain after eating. Denies N/V, F/C. Aware of plan for OR tomorrow. Objective - Vital Signs/Intake and Output Vital Signs (last 24 hours): Temp Pulse Resp BP Pulse Ox 97.9 F 58 L 18 112/55 L 99 05/11/17 09:00 05/11/17 09:00 05/11/17 09:00 05/11/17 09:00 05/11/17 09:00 - Medications Medications: Current Medications Buspirone HCl (Buspar) 5 mg PO BID [facility] Last Admin: 05/11/17 09:54 Dose: Not Given Piperacillin Sod/Tazobactam Sod (Zosyn 4.5 Gm Iv Premix) 4.5 gm in 100 mls @ 100 mls/hr IVPB Q8 JAY PRN Reason: Protocol Last Admin: 05/11/17 09:55 Dose: 100 mls/hr Lactated Ringer's (Lactated Ringer's) 1,000 mls @ 125 mls/hr IV .Q8H [facility] Last Admin: 05/10/17 11:12 Dose: 125 mls/hr Ondansetron HCl (Zofran Inj) 4 mg IVP Q4 PRN PRN Reason: Nausea/Vomiting Potassium Chloride (K-Dur 20 Meq Er Tab) 20 meq PO DAILY [facility] Last Admin: 05/11/17 09:54 Dose: 20 meq - Labs Labs: 05/10/17 06:30 05/10/17 06:30 PT 12.3 Seconds (9.8-13.1) 05/09/17 05:40 INR 1.1 (0.9-1.2) 05/09/17 05:40 APTT 31.8 Seconds (25.6-37.1) 05/09/17 05:40 - Constitutional Appears: Non-toxic, No Acute Distress - ENT Exam ENT Exam: Mucous Membranes Moist - Respiratory Exam Respiratory Exam: absent: Accessory Muscle Use, Respiratory Distress - Cardiovascular Exam Cardiovascular Exam: REGULAR RHYTHM. absent: Tachycardia - GI/Abdominal Exam GI & Abdominal Exam: Soft. absent: Tenderness Assessment and Plan - Assessment and Plan (Free Text) Assessment: 56F w/ gallstone pancreatitis; resolving Plan: cont IVF cont abx NPO @ [place] CLD for remainder of day plan for OR tomorrow d/w Dr Rui Garcia, PGY3
[2017-05-11] MEDS: Lactated Ringer's 1,000 ML IV SCH (13:26)
[2017-05-11] MEDS ORDERED: Potassium Chl 20 mEq in NS 1,000 ML IV SCH (14:45)
[2017-05-12] MEDS ORDERED: Lactated Ringer's 1,000 ML IV SCH ×3 (00:45→02:45)
[2017-05-12] MEDS: Piperacill/Tazo 4.5gm in Dex 4.5 GM/100 ML BAG IVPB SCH ×3 (01:25→17:15)
[2017-05-12 06:10] LABS: ALB/GLOB RATIO 1.2 (1.0-2.1); ALKALINE PHOSPHATASE 126 U/L (38-126); ALT/SGPT 258 U/L (9-52); AST/SGOT 47 U/L (14-36); BILIRUBIN,TOTAL 0.6 mg/dl (0.2-1.3); BLOOD UREA NITROGEN 7 mg/dl (7-17); CALCIUM 9.3 mg/dL (8.4-10.2); CARBON DIOXIDE 25 mmol/L (22-30); CHLORIDE 110 mmol/L (98-107); GFR AFRICAN-AMERICAN > 60; GLUCOSE,RANDOM 88 mg/dL (65-105); SODIUM 144 mmol/l (132-148); TOTAL PROTEIN 7.6 G/DL (6.3-8.2)
[2017-05-12 06:12] LABS: HEMATOCRIT 36.9 % (34.0-47.0); MEAN CELL VOLUME 91.5 fl (81.0-99.0); MEAN CORPUSCULAR HEMOGLOBIN 29.8 pg (27.0-31.0); MEAN CORPUSCULAR HGB CONC 32.6 g/dL (33.0-37.0); WHITE BLOOD COUNT 5.4 K/uL (4.8-10.8)
[2017-05-12] MEDS: Potassium Chloride 20 mEq ER Tab PO SCH (08:14)
--- NOTE | 2017-05-12 08:55 | CP.PCM.PN ---
Subjective - Date & Time of Evaluation Date of Evaluation: 05/12/17 Time of Evaluation: 07:20 - Subjective Subjective: Pt seen and examined at bedside this morning. Pt is in no acute distress, comfortably lying in bed. Pt has been on NPO since midnight. Pt reports dry mouth but denies abdominal pain, nausea, vomiting, fever, chills, chest pain or dyspnea. Pt is to go to OR for lap melania. Objective - Vital Signs/Intake and Output Vital Signs (last 24 hours): Temp Pulse Resp BP Pulse Ox 98.3 F 73 18 119/69 100 05/12/17 08:00 05/12/17 08:00 05/12/17 08:00 05/12/17 08:00 05/12/17 08:00 - Medications Medications: Current Medications Buspirone HCl (Buspar) 5 mg PO BID [facility] Last Admin: 05/12/17 08:14 Dose: Not Given Piperacillin Sod/Tazobactam Sod (Zosyn 4.5 Gm Iv Premix) 4.5 gm in 100 mls @ 100 mls/hr IVPB Q8 JAY PRN Reason: Protocol Last Admin: 05/12/17 08:13 Dose: 100 mls/hr Potassium Chloride/Sodium Chloride (Potassium Chl 20 Meq In Ns) 1,000 mls @ 79.208 mls/hr IV .[id number] [facility] Stop: 05/12/17 16:00 Last Admin: 05/11/17 15:37 Dose: 79.208 mls/hr Ondansetron HCl (Zofran Inj) 4 mg IVP Q4 PRN PRN Reason: Nausea/Vomiting Potassium Chloride (K-Dur 20 Meq Er Tab) 20 meq PO DAILY [facility] Last Admin: 05/12/17 08:14 Dose: Not Given - Labs Labs: 05/12/17 04:30 05/12/17 04:30 PT 12.3 Seconds (9.8-13.1) 05/09/17 05:40 INR 1.1 (0.9-1.2) 05/09/17 05:40 APTT 31.8 Seconds (25.6-37.1) 05/09/17 05:40 - Constitutional Appears: Well, No Acute Distress - Head Exam Head Exam: NORMAL INSPECTION, NORMOCEPHALIC - ENT Exam ENT Exam: Mucous Membranes Moist - Neck Exam Neck Exam: Full ROM, Normal Inspection - Respiratory Exam Respiratory Exam: Clear to Ausculation Bilateral. absent: Rales, Rhonchi, Wheezes, Respiratory Distress - Cardiovascular Exam Cardiovascular Exam: REGULAR RHYTHM, RRR, +S1, +S2. absent: Murmur - GI/Abdominal Exam GI & Abdominal Exam: Soft, Normal Bowel Sounds. absent: Tenderness - Extremities Exam Extremities Exam: Normal Capillary Refill. absent: Calf Tenderness, Pedal Edema - Neurological Exam Neurological Exam: Alert, Awake, Oriented x3 - Psychiatric Exam Psychiatric exam: Normal Affect, Normal Mood - Skin Skin Exam: Normal Color, Warm. absent: Rash Assessment and Plan - Assessment and Plan (Free Text) Assessment: 56 yo female with PMHx of gallstones admitted for gallstone pancreatitis now resolved now with acute cholecystitis. Plan: Acute Cholecystitis: -OR today for lap melania. -Abdominal U/S on 05/07/17: acute/subacute cholecystitis. -MRCP on 05/07/17: No evidence of pancreatitis. No evidence of biliary obstruction. Diffuse thickening of the gallbladder wall with trace pericholecystic fluid and trace ascites. Findings raise suspicion of cholecystitis though they are nonspecific -Continue Zosyn 4.5g IV q 8 ( Start date: 05/08/17) -Continue NS IV @80mls/hr -WBC: 5.4 today -Lipase: 1563 (05/08/17); Lipase: 94760 on admission. -BISAP score: 0 -Blood culture: no growth after 4 days. Elevated transaminitis: -GI consult appreciated. -Transaminase levels trending down -Negative hepatitis panel - F/U Ceruloplasmin, FARZANA IFA SCR W/REFL TITER, mitochondrial ab w/rfx, smooth muscle AB w/ rfx, liver kidney RORY AB, immunoglobulin G - F/U CMP in AM Hypokalemia resolved -K:4.0 today -NS IV @80mls/hr w/ 20 KCl meq will be stopped at 1600 today. -Continue with KCl 20 meq PO daily. HTN -diet controlled -Stable Hypercholesterolemia -Controlled -Triglycerides 99, cholesterol 202, LDL cholesterol 116, HDL cholesterol 52 - WNL DVT prophylaxis -SCDs -Encourage ambulation. Diet -NPO -Will advance as tolerated after surgery. Code Status: -Full code
--- NOTE | 2017-05-12 11:41 | RAD ---
PROCEDURE: CHEST RADIOGRAPH, 1 VIEW HISTORY: pre-op COMPARISON: 10/19/2016 FINDINGS: LUNGS: Clear. PLEURA: No pneumothorax or pleural fluid seen. CARDIOVASCULAR: Normal. OSSEOUS STRUCTURES: No significant abnormalities. VISUALIZED UPPER ABDOMEN: Normal. OTHER FINDINGS: None. IMPRESSION: No active disease.
[2017-05-12] MEDS ORDERED: ceFAZolin IV 1 gm in Dextrose 0 GM/0 ML BAG IVPB ONE (11:50)
[2017-05-12] MEDS ORDERED: Bupivacaine 0.5% Inj(30mL) ONE (11:50)
[2017-05-12] MEDS ORDERED: Iohexol 300 100 ML IJ ONE (11:51)
[2017-05-12] MEDS ORDERED: Propofol 10 mg/ml Inj (20 ML) ONE (12:24)
[2017-05-12] MEDS ORDERED: Midazolam 2 MG/2 ML VIAL ONE (12:25)
[2017-05-12] MEDS ORDERED: Succinylcholine 200 mg/10 ml Inj IV ONE (12:26)
[2017-05-12] MEDS ORDERED: Rocuronium 10 mg/ml (5 ml) ONE (12:26)
[2017-05-12] MEDS ORDERED: Lidocaine 4% (Laryng-O-Jet) Kit MM ONE (12:27)
[2017-05-12] MEDS ORDERED: Lidocaine 2% MPF (5 ml) Inj ONE (12:32)
[2017-05-12] MEDS ORDERED: Lactated Ringer's 1,000 ML IV ONE ×2 (12:35→15:20)
[2017-05-12] MEDS ORDERED: Dexamethasone 4 mg/1 ml ONE (13:19)
[2017-05-12] MEDS ORDERED: Neostigmine Methylsulfate 2 MG/2 ML ML IV ONE (13:55)
[2017-05-12] MEDS ORDERED: HYDROmorphone 0.5 mg/0.5 ml ISec IVP PRN (14:13)
--- NOTE | 2017-05-12 14:15 | PCM.SURG1 ---
Surgeon's Initial Post Op Note - Surgeon's Notes Surgeon: Dr Fabian Chief Lock Operator: Dr Garcia PGY3, Dr Farnsworth PGY2 Type of Anesthesia: General Endo Anesthesia Administered By: Dr Jacob Pre-Operative Diagnosis: Gallstone pancreatitis Operative Findings: see report Post-Operative Diagnosis: as above Operation Performed: laparoscopic cholecystectomy Specimen/Specimens Removed: gallbladder Estimated Blood Loss: EBL {In ML}: 5 Blood Products Given: N/A Drains Used: No Drains Post-Op Condition: Good Date of Surgery/Procedure: 05/12/17 Time of Surgery/Procedure: 14:18
[2017-05-12] MEDS ORDERED: Oxycodone/Acetaminophen 5/325 mg Tab PO PRN (14:24)
--- NOTE | 2017-05-12 15:58 | OP ---
PROCEDURE DATE: PREOPERATIVE DIAGNOSES: Cholecystitis with sludge and pancreatitis. POSTOPERATIVE DIAGNOSES: Cholecystitis with sludge and pancreatitis. OPERATION: Laparoscopy, cholecystectomy, attempted cholangiogram. SURGEON: Saul Fabian MD. STUDIO POTTER: . ESTIMATED BLOOD LOSS: Minimal. DRAINS: None. COMPLICATIONS: None. DESCRIPTION OF PROCEDURE: In the operating room, the patient was identified by name, name of procedure, laterality, my rashawn and the consent. The abdomen was accessed through Veress needle through the umbilicus and a supraumbilical incision. The Visiport was placed. A xiphoid and 2 lateral 5s were placed. Going up to the fundus and the infundibulum in the correct position, the peritoneum over the distal part of the gallbladder was pulled down exposing initially a cystic duct and artery that were presumptive. The peritoneum on either side was cleaned. Multiple small adhesions were taken down and leaving us with a very nice cystic duct and artery. The under surface was cleaned exposing the liver giving a beautiful view and safety. A clip was placed on the gladder, it was partially opened. Cholangiogram was attempted; however, I could not advance the catheter without the risk of tearing it, so consequently the cystic duct was doubly clipped and divided followed by and the gallbladder taken off the liver bed. Using the hook and cautery at 25, the gallbladder was removed into a bag and removed through the umbilicus and the incisions were closed as necessary with stitch of 0 Vicryl followed by subcuticular PDS and Dermabond. The wounds were injected with Marcaine. The patient was taken to the recovery room in good condition after the sponge and needle counts were declared correct. Saul Fabian MD
[2017-05-12] MEDS: Lactated Ringer's 1,000 ML IV SCH ×2 (18:20→22:07)
[2017-05-12] MEDS: Benzocaine/Menthol (Cepacol) Lozenge PO PRN (22:02)
[2017-05-13] MEDS: Piperacill/Tazo 4.5gm in Dex 4.5 GM/100 ML BAG IVPB SCH ×2 (00:22→08:29)
[2017-05-13] MEDS: Lactated Ringer's 1,000 ML IV SCH (05:36)
[2017-05-13 05:44] LABS: HEMATOCRIT 36.6 % (34.0-47.0); MEAN CELL VOLUME 91.1 fl (81.0-99.0); MEAN CORPUSCULAR HEMOGLOBIN 30.2 pg (27.0-31.0); MEAN CORPUSCULAR HGB CONC 33.2 g/dL (33.0-37.0); RED CELL DISTRIBUTION WIDTH 13.3 % (11.5-14.5); WHITE BLOOD COUNT 9.7 K/uL (4.8-10.8)
[2017-05-13 06:00] LABS: ALB/GLOB RATIO 1.2 (1.0-2.1); ALKALINE PHOSPHATASE 129 U/L (38-126); ALT/SGPT 241 U/L (9-52); AST/SGOT 85 U/L (14-36); BILIRUBIN,TOTAL 0.8 mg/dl (0.2-1.3); BLOOD UREA NITROGEN 7 mg/dl (7-17); CALCIUM 9.5 mg/dL (8.4-10.2); CARBON DIOXIDE 25 mmol/L (22-30); CHLORIDE 107 mmol/L (98-107); GFR AFRICAN-AMERICAN > 60; GLUCOSE,RANDOM 100 mg/dL (65-105); POTASSIUM 3.9 MMOL/L (3.6-5.0); SODIUM 143 mmol/l (132-148); TOTAL PROTEIN 7.7 G/DL (6.3-8.2)
[2017-05-13] MEDS: Acetaminophen 650mg/20.3ml solution UD PO PRN ×2 (08:29→15:32)
[2017-05-13] MEDS: Benzocaine/Menthol (Cepacol) Lozenge PO PRN (08:30)
[2017-05-13] MEDS: Potassium Chloride 20 mEq ER Tab PO SCH (08:31)
--- NOTE | 2017-05-13 08:33 | CP.PCM.PN ---
Subjective - Date & Time of Evaluation Date of Evaluation: 05/13/17 Time of Evaluation: 07:05 - Subjective Subjective: Gen Sx: Dr Fabian Pt S&E. DRUO. POD#1 s/p lap melania. Pt states her sore throat has improved. Minimal gas pains, but tolerable. Has not yet been OOB to ambulate. tolerated liquids last night. Pt expresses a great deal of anxiety and states she is not ready to go home. Denies n/v, f/c, diarrhea or constipation. Passing flatus. Objective - Vital Signs/Intake and Output Vital Signs (last 24 hours): Temp Pulse Resp BP Pulse Ox 98.3 F 105 H 18 142/78 99 05/13/17 00:51 05/13/17 00:51 05/13/17 00:51 05/13/17 00:51 05/13/17 00:51 - Medications Medications: Current Medications Acetaminophen (Tylenol 650mg/20.3ml Solution Ud) 650 mg PO Q6 PRN PRN Reason: Headache Benzocaine/Menthol (Cepacol Sore Throat) 1 juana PO Q2 PRN PRN Reason: Sore Throat Last Admin: 05/12/17 22:02 Dose: 1 juana Buspirone HCl (Buspar) 5 mg PO BID [facility] Last Admin: 05/12/17 18:15 Dose: 5 mg Piperacillin Sod/Tazobactam Sod (Zosyn 4.5 Gm Iv Premix) 4.5 gm in 100 mls @ 100 mls/hr IVPB Q8 [facility] PRN Reason: Protocol Last Admin: 05/13/17 00:22 Dose: 100 mls/hr Lactated Ringer's (Lactated Ringer's) 1,000 mls @ 125 mls/hr IV .Q8H [facility] Last Admin: 05/13/17 05:36 Dose: 125 mls/hr Ondansetron HCl (Zofran Inj) 4 mg IVP Q4 PRN PRN Reason: Nausea/Vomiting Oxycodone/Acetaminophen (Percocet 5/325 Mg Tab) 1 tab PO Q4 PRN PRN Reason: Pain, moderate (4-7) Stop: 05/15/17 14:25 Last Admin: 05/12/17 22:02 Dose: 1 tab Potassium Chloride (K-Dur 20 Meq Er Tab) 20 meq PO DAILY [facility] Last Admin: 05/12/17 08:14 Dose: Not Given - Labs Labs: 05/13/17 04:20 05/13/17 04:20 PT 12.3 Seconds (9.8-13.1) 05/09/17 05:40 INR 1.1 (0.9-1.2) 05/09/17 05:40 APTT 31.8 Seconds (25.6-37.1) 05/09/17 05:40 - Constitutional Appears: Non-toxic, No Acute Distress - ENT Exam ENT Exam: Mucous Membranes Dry - Respiratory Exam Respiratory Exam: absent: Accessory Muscle Use, Respiratory Distress - Cardiovascular Exam Cardiovascular Exam: REGULAR RHYTHM. absent: Tachycardia - GI/Abdominal Exam GI & Abdominal Exam: Soft, Tenderness (post-op and appropriate). absent: Distended, Firm Additional comments: incisions c/d/i - Neurological Exam Neurological Exam: Alert, Awake, Oriented x3 - Psychiatric Exam Psychiatric exam: Normal Affect, Normal Mood - Skin Skin Exam: Normal Color, Warm Assessment and Plan - Assessment and Plan (Free Text) Assessment: 56F POD#1 s/p lap melania Plan: cont regular diet ? of conversion disorder post-op??? - mgmt per primary pt clear for d/c from surgical standpoint, but demonstrates hesitancy. OK to keep in house for one more day, surgery will cont to follow until discharge d/w Dr Rui Garcia, PGY3
[2017-05-13] MEDS ORDERED: Enoxaparin 40 mg Syringe SC SCH (10:15)
[2017-05-13 13:25] VITALS: BP 112/70; PULSE 61; RESP 18; TEMP 98.7; O2SAT 98
--- NOTE | 2017-05-13 13:28 | CP.PCM.DIS ---
Provider - Provider Date of Admission: 05/07/17 18:45 Attending physician: Fabiola Joiner MD Time Spent in preparation of Discharge (in minutes): 30 Diagnosis - Discharge Diagnosis (1) Acute cholecystitis Status: Acute Hospital Course - Lab Results Lab Results: Micro Results 05/07/17 16:04 Blood-Venous Blood Culture - Final NO GROWTH AFTER 5 DAYS 05/07/17 16:04 Blood-Venous Gram Stain - Final TEST NOT PERFORMED Most Recent Lab Values WBC 9.7 K/uL (4.8-10.8) D 05/13/17 04:20 RBC 4.02 Mil/uL (3.80-5.20) 05/13/17 04:20 Hgb 12.1 g/dL (12.0-16.0) 05/13/17 04:20 Hct 36.6 % (34.0-47.0) 05/13/17 04:20 MCV 91.1 fl (81.0-99.0) 05/13/17 04:20 MCH 30.2 pg (27.0-31.0) 05/13/17 04:20 MCHC 33.2 g/dL (33.0-37.0) 05/13/17 04:20 RDW 13.3 % (11.5-14.5) 05/13/17 04:20 Plt Count 188 K/uL (130-400) 05/13/17 04:20 MPV 11.6 fl (7.2-11.7) 05/08/17 04:30 Neut % (Auto) 61.8 % (50.0-75.0) 05/08/17 04:30 Lymph % (Auto) 30.1 % (20.0-40.0) 05/08/17 04:30 Sharkey % (Auto) 7.2 % (0.0-10.0) 05/08/17 04:30 Eos % (Auto) 0.5 % (0.0-4.0) 05/08/17 04:30 Baso % (Auto) 0.4 % (0.0-2.0) 05/08/17 04:30 Neut # 4.3 K/uL (1.8-7.0) 05/08/17 04:30 Lymph # 2.1 K/uL (1.0-4.3) 05/08/17 04:30 Sharkey # 0.5 K/uL (0.0-0.8) 05/08/17 04:30 Eos # 0.0 K/uL (0.0-0.7) 05/08/17 04:30 Baso # 0.0 K/uL (0.0-0.2) 05/08/17 04:30 PT 12.3 Seconds (9.8-13.1) 05/09/17 05:40 INR 1.1 (0.9-1.2) 05/09/17 05:40 APTT 31.8 Seconds (25.6-37.1) 05/09/17 05:40 pO2 24 mm/Hg (30-55) L 05/07/17 16:10 VBG pH 7.37 (7.32-7.43) 05/07/17 16:10 VBG pCO2 43 mmHg (40-60) 05/07/17 16:10 VBG HCO3 22.9 mmol/L 05/07/17 16:10 VBG Total CO2 26.2 mmol/L (22-28) 05/07/17 16:10 VBG O2 Sat (Calc) 45.6 % (40-65) 05/07/17 16:10 VBG Base Excess -0.6 mmol/L (0.0-2.0) L 05/07/17 16:10 VBG Potassium 3.3 mmol/L (3.6-5.2) L 05/07/17 16:10 Sodium 139.0 mmol/L (132-148) 05/07/17 16:10 Chloride 107.0 mmol/L (98-107) 05/07/17 16:10 Glucose 128 mg/dL (65-105) H 05/07/17 16:10 Lactate 1.1 mmol/L (0.7-2.1) 05/07/17 16:10 FiO2 21.0 % 05/07/17 16:10 Sodium 143 mmol/l (132-148) 05/13/17 04:20 Potassium 3.9 MMOL/L (3.6-5.0) 05/13/17 04:20 Chloride 107 mmol/L (98-107) 05/13/17 04:20 Carbon Dioxide 25 mmol/L (22-30) 05/13/17 04:20 Anion Gap 15 (10-20) 05/13/17 04:20 BUN 7 mg/dl (7-17) 05/13/17 04:20 Creatinine 0.5 mg/dl (0.7-1.2) L 05/13/17 04:20 Est GFR ( Amer) > 60 05/13/17 04:20 Est GFR (Non-Af Amer) > 60 05/13/17 04:20 Random Glucose 100 mg/dL (65-105) 05/13/17 04:20 Calcium 9.5 mg/dL (8.4-10.2) 05/13/17 04:20 Total Bilirubin 0.8 mg/dl (0.2-1.3) 05/13/17 04:20 AST 85 U/L (14-36) H D 05/13/17 04:20 ALT 241 U/L (9-52) H 05/13/17 04:20 Alkaline Phosphatase 129 U/L (38-126) H 05/13/17 04:20 Total Protein 7.7 G/DL (6.3-8.2) 05/13/17 04:20 Albumin 4.2 g/dL (3.5-5.0) 05/13/17 04:20 Globulin 3.5 gm/dL (2.2-3.9) 05/13/17 04:20 Albumin/Globulin Ratio 1.2 (1.0-2.1) 05/13/17 04:20 Ceruloplasmin 31 mg/dL (18-53) 05/09/17 05:40 Triglycerides 99 mg/DL (0-149) D 05/07/17 18:41 Cholesterol 202 mg/dL (0-199) H 05/07/17 18:41 LDL Cholesterol Direct 116 mg/dL (0-129) 05/07/17 18:41 HDL Cholesterol 52 MG/DL (30-70) 05/07/17 18:41 Lipase 1563 U/L (23-300) H 05/08/17 07:04 Venous Blood Potassium 3.3 mmol/L (3.6-5.2) L 05/07/17 16:10 Urine Color Yellow (YELLOW) 05/07/17 14:13 Urine Clarity Cloudy (Clear) 05/07/17 14:13 Urine pH 6.0 (5.0-8.0) 05/07/17 14:13 Ur Specific [place] 1.008 (1.003-1.030) 05/07/17 14:13 Urine Protein Negative mg/dL (NEGATIVE) 05/07/17 14:13 Urine Glucose (UA) Neg mg/dL (Normal) 05/07/17 14:13 Urine Ketones Negative mg/dL (NEGATIVE) 05/07/17 14:13 Urine Blood Negative (NEGATIVE) 05/07/17 14:13 Urine Nitrate Negative (NEGATIVE) 05/07/17 14:13 Urine Bilirubin Negative (NEGATIVE) 05/07/17 14:13 Urine Urobilinogen 0.2-1.0 mg/dL (0.2-1.0) 05/07/17 14:13 Ur Leukocyte Esterase Neg Sammi/uL (Negative) 05/07/17 14:13 Urine RBC (Auto) 1 /hpf (0-3) 05/07/17 14:13 Urine Microscopic WBC 1 /hpf (0-5) 05/07/17 14:13 Ur Squamous Epith Cells < 1 /hpf (0-5) 05/07/17 14:13 Urine Bacteria Rare (<OCC) 05/07/17 14:13 Alcohol, Quantitative < 10 mg/dl (0-10) 05/07/17 18:41 IgG 1231.6 mg/dL (700.0-1600.0) 05/09/17 05:40 FARZANA Screen Negative (Negative) 05/08/17 11:02 Hepatitis A IgM Ab Negative (NEGATIVE) 05/08/17 10:28 Hep Bs Antigen Negative (NEGATIVE) 05/08/17 10:28 Hep B Core IgM Ab Negative (NEGATIVE) 05/08/17 10:28 Hepatitis C Antibody Negative (NEGATIVE) 05/08/17 10:28 Blood Type O POSITIVE 05/08/17 10:05 Blood Type Confirm O POSITIVE 05/08/17 10:40 Antibody Screen Negative 05/08/17 10:05 BBK History Checked No verified bt 05/08/17 10:05 - Hospital Course Hospital Course: 56 y.o. female with PMHx of anxiety admitted for acute cholecysitis s/p laproscopic cholecystectomy tolerating PO diet with downward trending LFT's Pt. received Zosyn 4.5grams I.V. Q6. hours and no need for PO antibiotics as an outpatient as per surgery. GI consult with Dr. West ordered smooth muscle ab, anti-mitochondrial ab, liver/kidney micro ab, ceruloplasmin to be follow up as outpatient. Discharge Medication Ibuprofen 600mg PO Q6 PRN after meals Buspirone 5mg PO BID PRN for anxiety Follow up appointment Dr. Bynum at [facility] for 05/21/17 Referral for follow up with [facility] Dr. Rui Ly precautions given for severe pain, fever, or bleeding. Discharge Exam - Head Exam Head Exam: NORMAL INSPECTION, NORMOCEPHALIC - Eye Exam Eye Exam: Normal appearance. absent: Scleral icterus - ENT Exam ENT Exam: Mucous Membranes Moist - Neck Exam Neck exam: Full Rom - Respiratory Exam Respiratory Exam: Clear to PA & Lateral, NORMAL BREATHING PATTERN - Cardiovascular Exam Cardiovascular Exam: REGULAR RHYTHM, +S1, +S2 - GI/Abdominal Exam GI & Abdominal Exam: Normal Bowel Sounds, Soft. absent: Rigid, Tenderness - Neurological Exam Neurological exam: Alert, Oriented x3 - Psychiatric Exam Psychiatric exam: Normal Affect, Normal Mood - Skin Additional comments: laproscopic surgical site on abdomen with dressing in place Discharge Plan - Discharge Medications Prescriptions: busPIRone [Buspar] 5 mg PO BID PRN 5 Days #10 tab PRN Reason: Anxiety Ibuprofen [Motrin Tab] 600 mg PO Q6 PRN 5 Days #20 tab PRN Reason: Pain, Moderate (4-7) - Follow Up Plan Condition: STABLE Disposition: HOME/ ROUTINE Instructions: Laparoscopic Cholecystectomy (DC) Additional Instructions: Appointment Date May [address] BYNUM Referrals: Saul Fabian MD [Staff Provider] -
[2017-05-14 13:59] LABS: LKM-1 Ab (IgG) <=20.0 U (<=20.0)
== END 2017-05-13 15:50 | disposition home or self-care (01) | DRG 493 ==
LOC: H.ER 12:46 → H.ERHOLD 18:45 → H.TEL 21:35
PROVIDERS: ADMIT Family Medicine; ATTEND Family Medicine
PROC: 0FT44ZZ Resection of Gallbladder, Percutaneous Endoscopic Approach (ICD-10-PCS; principal; 2017-05-12 13:30)
DX: K80.00 Calculus of gallbladder with acute cholecystitis without obstruction (principal); K85.10 Biliary acute pancreatitis without necrosis or infection; E87.6 Hypokalemia; E78.00 Pure hypercholesterolemia, unspecified; F41.1 Generalized anxiety disorder; I10 Essential (primary) hypertension; K21.9 Gastro-esophageal reflux disease without esophagitis; M17.10 Unilateral primary osteoarthritis, unspecified knee; R73.03 Prediabetes; Z91.013 Allergy to seafood

== ENCOUNTER 2018-03-12 21:32 | Emergency (ER) | payer SELFPAY ==
[2018-03-12 21:46] VITALS: RESP 18; TEMP 98.6
--- NOTE | 2018-03-12 22:02 | ED PDOC ---
Lower Extremity Pain/Injury Time Seen by Provider: 03/12/18 22:00 Chief Complaint (Nursing): Lower Extremity Problem/Injury Chief Complaint (Provider): LEG PAIN History Per: Patient (57 Y/O FEMALE HERE FOR RASH NOTED LOWER EXTREMITIES X WEEKS NOTED WORSENING AND INVOLVING THIGHS. PATIENT ALSO STATES SHE HAS HAD MODERATE CALF PAIN AND IS CONCERNED. IS ON BUSPIRONE BUT HAS BEEN ON FOR A LONG TIME PRIOR TO RASH. IS ALSO ON ANTIBIOTICS BUT STATES RASH BEGAN PRIOR TO ST ARTING THIS MEDICATION.) Past Medical History Reviewed: Historical Data, Nursing Documentation, Vital Signs Vital Signs: Last Vital Signs Temp 98.6 F 03/12/18 21:40 Pulse 84 03/12/18 21:40 Resp 18 03/12/18 21:40 BP 151/78 H 03/12/18 21:40 Pulse Ox 99 03/12/18 21:40 - Medical History PMH: Anxiety, HTN, Hypercholesterolemia Denies: Chronic Kidney Disease - Surgical History Surgical History: - Family History Family History: States: Hypertension - Immunization History Hx Tetanus Toxoid Vaccination: No Hx Influenza Vaccination: No Hx Pneumococcal Vaccination: No - Home Medications Home Medications: Ambulatory Orders Medication Instructions Recorded Lactobacillus Combination No.8 1 cap PO BID 05/07/17 [Adult Probiotic] busPIRone [Buspar] 5 mg PO BID 05/07/17 Ibuprofen [Motrin Tab] 600 mg PO Q6 PRN 5 Days #20 tab 05/13/17 busPIRone [Buspar] 5 mg PO BID PRN 5 Days #10 tab 05/13/17 - Allergies Allergies/Adverse Reactions: Allergies Allergy/AdvReac Type Severity Reaction Status Date / Time shrimp Allergy Severe RASH Verified 05/07/17 12:55 octopus Allergy RASH Verified 05/07/17 12:55 Review of Systems ROS Statement: Except As Marked, All Systems Reviewed And Found Negative Physical Exam - Reviewed Nursing Documentation Reviewed: Yes Vital Signs Reviewed: Yes - Physical Exam Appears: Positive for: Well, Non-toxic, No Acute Distress Head Exam: Positive for: ATRAUMATIC, NORMAL INSPECTION, NORMOCEPHALIC Skin: Positive for: Normal Color, Warm, DRY Eye Exam: Positive for: EOMI, Normal appearance, PERRL ENT: Positive for: Normal ENT Inspection Neck: Positive for: Normal, Painless ROM Cardiovascular/Chest: Positive for: Regular Rate, Rhythm Respiratory: Positive for: CNT, Normal Breath Sounds Gastrointestinal/Abdominal: Positive for: Normal Exam, Soft Back: Positive for: Normal Inspection Extremity: Positive for: Normal ROM, Other (GENERALIZED REGION OF [place] NOTED ALONG LOWER LEGS. PATIENT NOTED TO HAVE BILATERAL CALF TENDERNESS BUT NO CALF SWELLING/REDNESS NOTED.) Neurologic/Psych: Positive for: Alert, Oriented - Laboratory Results Result Diagrams: 03/12/18 22:05 03/12/18 22:05 - ECG O2 Sat by Pulse Oximetry: 99 - Progress ED Course And Treament: DUPLEX BILATERAL LEG NEGATIVE FOR DVT D/W FAMILY MED RES. PATIENT TO F/U OUTPATIENT FOR VASCULITIS WORK UP Disposition - Clinical Impression Clinical Impression: Rash and nonspecific skin eruption - Patient ED Disposition Is Patient to be Admitted: No - Disposition Disposition: Routine/Home Disposition Time: 23:31 Condition: FAIR Additional Instructions: [facility]. Instructions: Skin Rash (DC) Print Language: AUSTRIAN
[2018-03-12 22:12] LABS: BASO % 0.5 % (0.0-2.0); EOS # 0.1 K/uL (0.0-0.7); EOS % 1.2 % (0.0-4.0); HEMOGLOBIN 12.9 g/dL (12.0-16.0); LYMPH # 3.3 K/uL (1.0-4.3); MEAN CELL VOLUME 92.7 fl (81.0-99.0); MEAN CORPUSCULAR HEMOGLOBIN 31.1 pg (27.0-31.0); MEAN CORPUSCULAR HGB CONC 33.5 g/dL (33.0-37.0); MEAN PLATELET VOLUME 10.7 fl (7.2-11.7); MONO # 0.5 K/uL (0.0-0.8); MONO % 6.8 % (0.0-10.0); NEUT # 3.6 K/uL (1.8-7.0); NEUT % 47.5 % (50.0-75.0); NRBC % 0.1 % (0.0-0.0); RBC 4.16 Mil/uL (3.80-5.20); RED CELL DISTRIBUTION WIDTH 13.6 % (11.5-14.5); WHITE BLOOD COUNT 7.5 K/uL (4.8-10.8)
[2018-03-12 22:31] LABS: PARTIAL THROMBOPLASTIN TIME 36.5 Seconds (25.6-37.1)
[2018-03-12 23:11] LABS: ALB/GLOB RATIO 1.2 (1.0-2.1); ALBUMIN 4.6 g/dL (3.5-5.0); ALT/SGPT 52 U/L (9-52); AST/SGOT 35 U/L (14-36); BLOOD UREA NITROGEN 18 mg/dl (7-17); CALCIUM 9.6 mg/dL (8.4-10.2); GFR NON-AFRICAN AMERICAN > 60
[2018-03-12 23:28] VITALS: BP 140/67; PULSE 87
[2018-03-12 23:35] VITALS: O2SAT 99
--- NOTE | 2018-03-13 10:54 | US ---
Date of service: 03/12/2018 PROCEDURE: Bilateral lower extremity venous duplex Doppler. HISTORY: R/O DVT COMPARISON: None available. TECHNIQUE: Bilateral common femoral, superficial femoral, popliteal and posterior tibial veins were evaluated. Flow was assessed with color Doppler, compressibility, assessment of phasic flow and augmentation response. FINDINGS: COMMON FEMORAL VEIN: Right CFV: Unremarkable. Left CFV: Unremarkable. SUPERFICIAL FEMORAL VEIN: Right SFV: Unremarkable. Left SFV: Unremarkable. POPLITEAL VEIN: Right Popliteal: Unremarkable. Left Popliteal: Unremarkable. POSTERIOR TIBIAL VEIN: Right PTV: Unremarkable. Left PTV: Unremarkable. OTHER FINDINGS: None. IMPRESSION: No evidence of deep venous thrombosis.
== END 2018-03-13 00:08 | disposition home or self-care (01) ==
LOC: H.ER 21:32
DX: R60.0 Localized edema (principal); R21 Rash and other nonspecific skin eruption